=== PATIENT | male | born 1950 | race Caucasian/White ===

== ENCOUNTER 2019-01-13 17:54 | Inpatient (IN) ==
[2019-01-13] MEDS ORDERED: Isovue-370 500 ML BOTTLE IVP ONE (18:12)
--- NOTE | 2019-01-13 18:13 | Emergency Department Note ---
Disposition Clinical Impression: Non-STEMI (non-ST elevated myocardial infarction) Chest pain Qualifiers: Chest pain type: unspecified Qualified Code(s): R07.9 - Chest pain, unspecified Disposition: Admitted As Inpatient Condition: Fair Time of Disposition: 21:15 Chest Pain HPI - General Chief Complaint: ED Chest Pain Stated Complaint: chest pain Time Seen by Provider: 01/13/19 17:58 Source: patient Mode of arrival: ambulatory Limitations: no limitations Vital Signs Reviewed: Yes Nursing Notes Reviewed: Yes - History of Present Illness HPI Narrative: 68-year-old male past medical history of hypertension, significant smoking history, previous myocardial infarctions presenting for one week of intermittent chest pain associated with shortness of breath, lightheaded dizziness, fever and chills, and back pain. Patient states the pain has been on and off for the past week that has spontaneously resolved without any issue. Patient states that today at noon his pain has started again and not gone away. Patient states his pain is 10 out of 10 on the pain scale, associated with difficulty breathing, his pain radiates into his left neck and throat and jaw and left upper extremity and radiates to his back. Patient is also had nausea and vomiting since this time. Pt complaint: chest pain Onset (ago): week(s) Duration: intermittent, gradually worsening Pain Location: substernal Severity: severe Severity scale (1-10): 10 Quality: sharp Pain Radiation: LUE, neck, jaw/teeth Improves with: nothing Worsens with: nothing Associated symptoms: Reports: nausea, vomiting, diaphoresis Treatments prior to arrival chest pain: aspirin (Patient had 3X 325 aspirin given this afternoon prior to coming to the ED.) - Related Data Home Medications Medication Instructions Recorded Confirmed Metoprolol [Lopressor] 12.5 mg PO BID 01/13/19 01/13/19 traZODone [TraZODone] 50 mg PO HS 01/13/19 01/13/19 Allergies Allergy/AdvReac Type Severity Reaction Status Date / Time Penicillins [PCN] Allergy Severe Anaphylaxis Verified 01/02/17 20:33 Review of Systems: *See History of Present Illness for more detail Constitutional: Admits fever, chills Cardiovascular: Admits chest pain Respiratory: Admits dyspnea, denies: cough, hemoptysis Gastrointestinal: Admits nausea and vomiting Denies: abdominal pain, diarrhea, constipation, hematemesis, melena, hematochezia Genitourinary: Denies: hematuria Musculoskeletal: Denies: back pain, neck pain Neurological: Admits to weakness, lightheadedness and dizziness Denies: headache, numbness, paresthesias, difficulty with ambulation. Endocrine: Admit fatigue All systems ED: reviewed and negative except as stated. Review of Systems: As Per HPI Chest Pain PMH - Past Medical History Medical history: Reports: coronary artery disease, CVA, hyperlipidemia, other Surgical history: Reports: bariatric surgery (gastric band), knee replacement (left), other (parotid gland removal, tongue growth removal ), pacemaker Psychiatric history: Reports: depression - Social History Smoking Status: Former smoker Alcohol use: Reports: occasionally Drug use: Reports: none Physical Exam Constitutional: Patient appears in moderate distress due to pain, he is mildly diaphoretic, [id number], engaged to conversation, speech is fluid, answers questions appropriately Neuro: GCS 15, no overt focal neurological deficits Head: Atraumatic, normocephalic Eyes: Pupils equal, round and reactive to light, no scleral icterus, no conjunctival injection Neck: Trachea midline without deviation. Anterior neck is supple without swelling. *Chest: Symmetric chest wall rise *Heart: Cardiac rhythm and rate are regular with S1 and S2 , no S3 or S4 appreciated, no murmurs, gallops, rubs, or clicks. *Lungs: Lungs are clear to auscultation bilaterally, without accessory muscle use or prolonged expiratory phase. No wheezes, rhonchi or stridor appreciated. Abdomen: Abdomen is flat, soft to palpation, normal bowel sounds. No abdominal bruit auscultated. Non-distended, non-rigid, no organomegaly, no ascites appreciated. No pulsatile mass, no tenderness or guarding to palpation in all four quadrants, no rebound Extremities: Normal capillary refill without evidence of pedal edema, joint swelling or erythema. Pulses/motor/sensory intact in all 4 extremities. Psychiatric exam: Patient displays a normal affect and mood for the environment. No overt signs of hallucination. Integumentary: warm, dry, intact, normal color. No rash, cyanosis, erythema, or pallor - General Limitations: no limitations General appearance: alert, in no apparent distress Course Course Narrative: Concern for dissection given patient's lightheadedness, dizziness, chest pain with radiation to the back we will order a CT dissection study at this time, Basic labs including troponin EKG/old EKG Treatments: Nitroglycerin for the management of pain, we will reassess with escalation to greater degree of pain medications as needed. - Reevaluation(s) Reevaluation #1: Patient pain not relieved with 3X's nitroglycerin We will give 0.5 mg Dilaudid at this time. Vital Signs Temperature 97.8 F 01/13/19 18:01 Pulse Rate 74 01/13/19 18:01 Respiratory Rate 18 01/13/19 18:01 Blood Pressure 115/72 01/13/19 18:01 O2 Sat by Pulse Oximetry 96 01/13/19 18:01 Temperature 97.8 F 01/13/19 18:01 Pulse Rate 74 01/13/19 19:57 Respiratory Rate 20 01/13/19 19:57 Blood Pressure 115/75 01/13/19 19:57 O2 Sat by Pulse Oximetry 94 01/13/19 19:57 Oxygen Delivery Oxygen Delivery Room Air Chest Pain - MDM Narrative Medical decision making narrative: The patient's heart score is 9 Patient states symptoms have improved with continued management for here in ED. Patient laboratory is significant for an elevated troponin at 0.10 Otherwise laboratory, EKG and imaging results are negative for acute pathology Patient started on heparin drip when negative dissection study was obtained Repeat troponin ordered Patient will be admitted to hospitalist medicine service for ACS workup Patient lives at bedside verbalized understanding and agreement with this plan. Dr. White accepting admission. - Lab Data Lab results reviewed: Yes I reviewed the patient's lab results. Result diagrams: 01/13/19 18:20 01/13/19 18:20 Lab Results 01/13/19 01/13/19 01/13/19 Range/Units 18:20 18:20 18:20 WBC 7.4 (4.3-11.1) K/mcL RBC 4.52 (4.19-5.50) M/mcL Hgb 14.1 (12.9-16.9) g/dL Hct 41.8 (37.5-50.1) % MCV 92.5 (83.0-100.0) fL MCH 31.2 (28.0-33.3) pg MCHC 33.7 (31.6-35.5) g/dL RDW 12.3 (11.5-14.5) % Plt Count 215 (140-400) K/mcL MPV 10.4 (9.4-12.4) fL Immature Gran % 0.4 (0-4) % Seg Neutrophils % 58.3 % Lymphocytes % 27.6 % Monocytes % 10.2 % Eosinophils % 3.0 % Basophils % 0.5 % Neutrophils # 4.3 (1.6-8.9) K/mcL Lymphocytes # 2.1 (0.6-4.6) K/mcL Monocytes # 0.8 (0.0-1.3) K/mcL Eosinophils # 0.2 (0.0-0.6) K/mcL Basophils # 0.0 (0.0-0.2) K/mcL PT 10.6 (9.4-12.1) Seconds INR 0.9 APTT 31.5 (26.0-36.0) Seconds Sodium 142 (136-145) mEq/L Potassium 4.2 (3.5-5.1) mEq/L Chloride 108 H (98-107) mEq/L Carbon Dioxide 23 (23-29) mEq/L BUN 28 H (8-23) mg/dL Creatinine 0.83 (0.70-1.30) mg/dL Est GFR ( Amer) > 60 (> 60) Est GFR (Non-Af Amer) > 60 (> 60) BUN/Creatinine Ratio 34 H (6-26) Glucose 100 (70-105) mg/dL Calculated Osmolality 300 (280-300) Calcium 9.1 (8.6-10.3) mg/dL Troponin I 0.10 H* (< 0.04) ng/mL - Radiology Data Radiology results reviewed: Yes I reviewed the patient's radiology results. CT Dissection 01/13/19 18:12 IMPRESSION: 1. No acute aortic pathology. Mild diffuse atherosclerotic plaque with no dissection or aneurysm. 2. Enlarged main pulmonary arteries indicative of pulmonary hypertension. 3. No acute pulmonary findings. 4. Atherosclerotic calcification in the coronary circulation. Stable pericardial calcification with no effusion. 5. No acute findings within the abdomen or pelvis. Mild diffuse colonic stool burden. D/ / 01/13/2019 20:37:54 Mike Call MD / [facility] Interpreting Provider: Mike Call MD - EKG Data EKG attestation: Yes I reviewed and interpreted this EKG. EKG results narrative: Patient EKG shows sinus rhythm with a heart rate of 73 bpm TN interval of 166 ms, QS duration 15 Mill 6, QT/QTc interval 404/446 ms respectively. There are n o significant ST segment elevations, depressions, pathologic Q waves, there are abnormal T-wave inversions noted diffusely particularly in lead aVR, aVL, and V1 which appear isolated to these leads and consistent with prior EKG in leads aVR and aVL, there are no signs of acute ischemic change. There is a mild nonspecific intraventricular conduction delay noted with widened QRS durations particularly in the inferior leads, however this EKG performed today appears to be generally consistent with prior EKG performed on 08/09/2016. 19:21: Patient with continued chest pain, repeat EKG was obtained which shows sinus rhythm with a heart of 66 bpm, TN interval of 179 ms, QRS duration of 112 ms, QT/QTc interval 414/434 ms respectively, there are no new acute ischemic changes, this EKG is generally consistent with prior. Heart Score - Score History: Highly Suspicious EKG: Non Specific repolarisation Disturbance Age: Greater than 65 Risk Factors: Equal/Greater than 3 risk factor or history of atherosclerotic disease Troponin: Greater than 3x normal limit HEART Score Total: 9
[2019-01-13 18:44] LABS: Basophils % 0.5 %; Eosinophils # 0.2 K/mcL (0.0-0.6); Hematocrit 41.8 % (37.5-50.1); Hemoglobin 14.1 g/dL (12.9-16.9); Immature Granulocytes % 0.4 % (0-4); Lymphocytes # 2.1 K/mcL (0.6-4.6); Lymphocytes % 27.6 %; Mean Corpuscular HGB Conc 33.7 g/dL (31.6-35.5); Mean Corpuscular Hemoglobin 31.2 pg (28.0-33.3); Mean Corpuscular Volume 92.5 fL (83.0-100.0); Mean Platelet Volume 10.4 fL (9.4-12.4); Monocytes # 0.8 K/mcL (0.0-1.3); Monocytes % 10.2 %; Neutrophils # 4.3 K/mcL (1.6-8.9); Platelet Count 215 K/mcL (140-400); Red Blood Count 4.52 M/mcL (4.19-5.50); Red Cell Distribution Width 12.3 % (11.5-14.5); Segmented Neutrophils % 58.3 %; White Blood Count 7.4 K/mcL (4.3-11.1)
[2019-01-13 18:55] LABS: INR 0.9; Prothrombin Time 10.6 Seconds (9.4-12.1)
[2019-01-13 18:58] LABS: Activated Partial Thrombo Time 31.5 Seconds (26.0-36.0)
[2019-01-13 19:05] LABS: BUN/Creatinine Ratio 34 (6-26); Blood Urea Nitrogen 28 mg/dL (8-23); Calcium 9.1 mg/dL (8.6-10.3); Carbon Dioxide 23 mEq/L (23-29); Chloride 108 mEq/L (98-107); Glucose 100 mg/dL (70-105); Osmolality,Calculated 300 (280-300); Potassium 4.2 mEq/L (3.5-5.1); Sodium 142 mEq/L (136-145); eGFR For African Americans > 60 (> 60); eGFR For Non-African Americans > 60 (> 60)
[2019-01-13] MEDS: Nitroglycerin 0.4 MG TAB.SUBL SL PRN ×3 (19:41→19:52)
[2019-01-13] MEDS ORDERED: *HR* HYDROmorphone (PF) 1 MG/ML SYRINGE IVP ONE (20:18)
[2019-01-13] MEDS ORDERED: *HR* Heparin 5,000 UNIT/ML VIAL IVP ONE (20:36)
[2019-01-13] MEDS ORDERED: *HR* Heparin 5,000 UNIT/ML VIAL IVP PRN ×2 (20:36)
[2019-01-13] MEDS ORDERED: Heparin 25,000 UNIT/250 ML D5W 25,000 UNIT/250 ML IV.SOLN IVC SCH (20:45)
--- NOTE | 2019-01-13 21:19 | Emergency Department Note ---
Disposition Clinical Impression: NSTEMI (non-ST elevated myocardial infarction) Disposition: Admitted As Inpatient Condition: Good Time of Disposition: 21:19 General Adult HPI - General Chief complaint: ED Chest Pain Stated complaint: chest pain Time Seen by Provider: 01/13/19 17:58 Source: patient Mode of arrival: ambulatory Limitations: no limitations - History of Present Illness Pain Scale: 7 - Related Data Home Medications Medication Instructions Recorded Confirmed Metoprolol [Lopressor] 12.5 mg PO BID 01/13/19 01/13/19 traZODone [TraZODone] 50 mg PO HS 01/13/19 01/13/19 Allergies Allergy/AdvReac Type Severity Reaction Status Date / Time Penicillins [PCN] Allergy Severe Anaphylaxis Verified 01/02/17 20:33 Past Medical History - Past Medical History Medical history: Reports: coronary artery disease, CVA, hyperlipidemia, other Surgical history: Reports: bariatric surgery (gastric band), knee replacement (left), other (parotid gland removal, tongue growth removal ), pacemaker Psychiatric history: Reports: depression - Social History Smoking Status: Former smoker Smokeless Tobacco Status: No Alcohol use: Reports: occasionally Drug use: Reports: none Physical Exam - General Limitations: no limitations General appearance: alert, in no apparent distress Course Vital Signs Temperature 97.8 F 01/13/19 18:01 Pulse Rate 74 01/13/19 18:01 Respiratory Rate 18 01/13/19 18:01 Blood Pressure 115/72 01/13/19 18:01 O2 Sat by Pulse Oximetry 96 01/13/19 18:01 Temperature 97.8 F 01/13/19 18:01 Pulse Rate 74 01/13/19 19:57 Respiratory Rate 20 01/13/19 19:57 Blood Pressure 115/75 01/13/19 19:57 O2 Sat by Pulse Oximetry 94 01/13/19 19:57 Oxygen Delivery Oxygen Delivery Room Air Medical Decision Making - Lab Data Result diagrams: 01/13/19 18:20 01/13/19 18:20 Lab Results 01/13/19 01/13/19 01/13/19 Range/Units 18:20 18:20 18:20 WBC 7.4 (4.3-11.1) K/mcL RBC 4.52 (4.19-5.50) M/mcL Hgb 14.1 (12.9-16.9) g/dL Hct 41.8 (37.5-50.1) % MCV 92.5 (83.0-100.0) fL MCH 31.2 (28.0-33.3) pg MCHC 33.7 (31.6-35.5) g/dL RDW 12.3 (11.5-14.5) % Plt Count 215 (140-400) K/mcL MPV 10.4 (9.4-12.4) fL Immature Gran % 0.4 (0-4) % Seg Neutrophils % 58.3 % Lymphocytes % 27.6 % Monocytes % 10.2 % Eosinophils % 3.0 % Basophils % 0.5 % Neutrophils # 4.3 (1.6-8.9) K/mcL Lymphocytes # 2.1 (0.6-4.6) K/mcL Monocytes # 0.8 (0.0-1.3) K/mcL Eosinophils # 0.2 (0.0-0.6) K/mcL Basophils # 0.0 (0.0-0.2) K/mcL PT 10.6 (9.4-12.1) Seconds INR 0.9 APTT 31.5 (26.0-36.0) Seconds Sodium 142 (136-145) mEq/L Potassium 4.2 (3.5-5.1) mEq/L Chloride 108 H (98-107) mEq/L Carbon Dioxide 23 (23-29) mEq/L BUN 28 H (8-23) mg/dL Creatinine 0.83 (0.70-1.30) mg/dL Est GFR ( Amer) > 60 (> 60) Est GFR (Non-Af Amer) > 60 (> 60) BUN/Creatinine Ratio 34 H (6-26) Glucose 100 (70-105) mg/dL Calculated Osmolality 300 (280-300) Calcium 9.1 (8.6-10.3) mg/dL Troponin I 0.10 H* (< 0.04) ng/mL Attestation Statement - Attestation Attestation: I examined this patient and my medical decision-making was reviewed with the Resident Physician. I agree with the documented findings, disposition and treatment plan as described except to the extent set forth below. 68 year old male presents to the Ed with complaints of chest pain adn appears to have an elevated troponin and otherwise negative CTA chest. likely an NSTEMI and we have started on heparin and admitted to [facility]
[2019-01-13 21:33] LABS: Hematocrit 38.4 % (37.5-50.1); Hemoglobin 12.9 g/dL (12.9-16.9); Mean Corpuscular HGB Conc 33.6 g/dL (31.6-35.5); Mean Corpuscular Hemoglobin 31.9 pg (28.0-33.3); Mean Corpuscular Volume 94.8 fL (83.0-100.0); Mean Platelet Volume 10.4 fL (9.4-12.4); Platelet Count 199 K/mcL (140-400); Red Blood Count 4.05 M/mcL (4.19-5.50); Red Cell Distribution Width 12.3 % (11.5-14.5); White Blood Count 6.3 K/mcL (4.3-11.1)
[2019-01-13 21:41] LABS: INR 0.9; Prothrombin Time 10.3 Seconds (9.4-12.1)
[2019-01-14] MEDS ORDERED: Naloxone 0.4 MG/ML INJ IVP PRN (00:11)
[2019-01-14] MEDS ORDERED: Ondansetron 4 MG/2 ML VIAL IVP PRN (00:11)
[2019-01-14] MEDS ORDERED: *HR* Dextrose 50 % in Water (Syg) 50 ML SYRINGE IVP PRN (00:17)
[2019-01-14] MEDS ORDERED: D5% in Water 1,000 ML IVC PRN (00:17)
[2019-01-14] MEDS ORDERED: Dextrose Gel 15 GM/37.5 ML TUBE PO PRN ×2 (00:17)
--- NOTE | 2019-01-14 00:18 | Internal Med History&Physical ---
Date of Encounter: 01/13/19 Time of Encounter: 23:15 Internal Medicine - H&P: HPI Chief complaint: Chest pain Admitted From: Emergency Dept Plans for Post Hospital Care: Home History of present illness: Mr. Sarkar is a 68 year old male Patient presented to the emergency room with 1 week history of intermittent chest pain and shortness of breath. At approximately noon patient's pain came back and did not improve. Patient tried taking aspirin at home and eventually the pain reached an 8 out of 10. He informed his who convinced him to come to the emergency department for further evaluation. He had radiation of pain into his left arm as well as his neck. The pain started in the center of his chest with radiation to his back. The pain had typically been resolving without intervention. The emergency room patient's initial vital signs were within normal limits CBC within normal limits BMP within normal limits. Initial troponin 0.10, increasing to 0.16. CT dissection study: No acute aortic pathology., No acute pulmonary findings or acute findings within the abdomen and pelvis. EKGx2: Sinus rhythm, no ischemic changes Patient was given nitroglycerin as well as 0.5 mg of Dilaudid. He had complete resolution of his chest pain. He was started on a heparin drip and admitted to the hospital for further management. On my evaluation, patient is resting comfortably in hospital bed in no acute distress. His is at bedside. She indicates that he has been having this pain on and off and she is tried to get him to come to the hospital but he has refused. He currently denies chest pain, abdominal pain, nausea, vomiting, diarrhea and constipation. He has a long history in his family of heart disease and diabetes, his mother and father both had heart disease, and 3 of his brothers also had heart disease. One of his brothers also has diabetes, and his mother had diabetes as well. He is a full code. 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, lap band - Social History Smoking Status: Former smoker Smokeless Tobacco Status: No Alcohol use: occasionally Drug use: none - Family History Mother Living Status: Hx Family Cardiac Disorders: Yes Hx Family Respiratory Disorders: No Hx Family Cancer: No Hx Family GI Disorders: No Hx Family Endocrine Disorder: No Hx Family Neuromuscular Disorders: No Hx Family Neurologic Disorders: No Hx Family HEENT Disorders: No Hx Family Autoimmune Disorders: No Internal Medicine - H&P: Meds Metoprolol [Lopressor] 12.5 mg PO BID 01/13/19 [History] traZODone [TraZODone] 50 mg PO HS 01/13/19 [History] Allergy/AdvReac Type Severity Reaction Status Date / Time Penicillins [PCN] Allergy Severe Anaphylaxis Verified 01/02/17 20:33 All Systems PM: A 10-system review of systems was performed and is negative for pertinent findings except as documented above in the HPI. - Constitutional Vitals: Temp Pulse Resp BP Pulse Ox 97.9 F 65 20 137/90 94 01/13/19 21:56 01/13/19 21:56 01/13/19 21:56 01/13/19 21:56 01/13/19 21:56 General appearance: Present: cooperative, A&O X 3, pleasant, no acute distress, answers questions appropriately Exam: - - Head Head exam: Present: normal inspection - Eye Eye exam: Present: EOMI, normal appearance - Respiratory Respiratory exam: Present: CTAB. Absent: rales, respiratory distress, rhonchi, wheezes - Cardiovascular Cardiovascular exam: Present: RRR. Absent: diastolic murmur, systolic murmur - GI/Abdominal GI/Abdominal exam: Present: normal bowel sounds, soft. Absent: tenderness - Extremities Exam Extremities exam: Present: warm, radial pulses palpable and symmetrical. Absent: calf tenderness, pedal edema, tenderness - Neurological Exam Neurological exam: Present: no focal deficits, strengths equal and symetr throughout. Absent: motor sensory deficit, facial droop, speech deficit - Skin Skin exam: Present: dry, normal color, warm Internal Med - H&P Results - Labs CBC & Chem 7: 01/13/19 20:47 01/13/19 18:20 Labs: Short CBC 01/13/19 01/13/19 Range/Units 18:20 20:47 WBC 7.4 6.3 (4.3-11.1) K/mcL Hgb 14.1 12.9 (12.9-16.9) g/dL Hct 41.8 38.4 (37.5-50.1) % Plt Count 215 199 (140-400) K/mcL Neutrophils # 4.3 (1.6-8.9) K/mcL BMP 01/13/19 18:20 Sodium 142 Potassium 4.2 Chloride 108 H Carbon Dioxide 23 BUN 28 H Creatinine 0.83 Glucose 100 Calcium 9.1 Cardiac Enzymes 01/13/19 01/13/19 Range/Units 18:20 20:47 Troponin I 0.10 H* 0.16 H* (< 0.04) ng/mL - Impressions ITS Impressions CT Dissection 01/13/19 18:12 IMPRESSION: 1. No acute aortic pathology. Mild diffuse atherosclerotic plaque with no dissection or aneurysm. 2. Enlarged main pulmonary arteries indicative of pulmonary hypertension. 3. No acute pulmonary findings. 4. Atherosclerotic calcification in the coronary circulation. Stable pericardial calcification with no effusion. 5. No acute findings within the abdomen or pelvis. Mild diffuse colonic stool burden. D/ / 01/13/2019 20:37:54 Mike Call MD / [facility] Interpreting Provider: Mike Call MD - Assessment and Plan (1) Chest pain Current Visit: Yes Status: Acute Assessment and plan: Now resolved after nitroglycerin 3 and 0.5 mg of Dilaudid. Initial troponin elevated to 0.16. EKG nonischemic. Patient was started on heparin drip in the emergency room. 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 Normal left ventricular diastolic function. Dilated right ventricle with normal systolic function. A device lead was visualized in the right atrium and right ventricle. Moderate pulmonic regurgitation. Unable to estimate RVSP due to lack of TR jet. Repeat echocardiogram Cardiology consultation Qualifiers: Chest pain type: unspecified Qualified Code(s): R07.9 - Chest pain, unspecified (2) Diabetes Current Visit: Yes Status: Acute Assessment and plan: Patient is not an insulin dependent diabetic Monitor sugars every 6 hours Nothing by mouth Low dose insulin sliding scale as needed Hold home meds. Qualifiers: Diabetes mellitus type: type 2 Diabetes mellitus jail insulin use: without jail use Diabetes mellitus complication status: without complication Qualified Code(s): E11.9 - Type 2 diabetes mellitus without complications (3) Pacemaker Current Visit: No Status: Chronic Assessment and plan: Patient has a pacemaker. Continue to monitor (4) DVT prophylaxis Current Visit: No Status: Acute Assessment and plan: Continue heparin drip - Time Spent With Patient Total time spent is greater than 50% in coordination of care (as documented) at patient's floor/unit and/or counseling patient: Greater than 35 minutes
[2019-01-14 04:13] LABS: Hematocrit 38.7 % (37.5-50.1); Hemoglobin 12.8 g/dL (12.9-16.9); Mean Corpuscular HGB Conc 33.1 g/dL (31.6-35.5); Mean Corpuscular Volume 93.7 fL (83.0-100.0); Mean Platelet Volume 10.7 fL (9.4-12.4); Platelet Count 176 K/mcL (140-400); Red Blood Count 4.13 M/mcL (4.19-5.50); Red Cell Distribution Width 12.4 % (11.5-14.5); White Blood Count 6.6 K/mcL (4.3-11.1)
[2019-01-14 04:33] LABS: BUN/Creatinine Ratio 34 (6-26); Blood Urea Nitrogen 23 mg/dL (8-23); Calcium 8.8 mg/dL (8.6-10.3); Carbon Dioxide 26 mEq/L (23-29); Chloride 108 mEq/L (98-107); Glucose 129 mg/dL (70-105); Osmolality,Calculated 297 (280-300); Potassium 3.8 mEq/L (3.5-5.1); Sodium 141 mEq/L (136-145); eGFR For African Americans > 60 (> 60); eGFR For Non-African Americans > 60 (> 60)
[2019-01-14] MEDS: Insulin LISPRO 300 UNITS/3 ML VIAL SQ SCH ×3 (05:13→18:25)
[2019-01-14] MEDS ORDERED: Ketorolac 15 MG/ML VIAL IVP PRN (06:33)
--- NOTE | 2019-01-14 09:40 | Cardiology Consult Note ---
<Masoud Alvarez - Last Filed: 01/14/19 10:22> Date of Encounter: 01/14/19 Time of Encounter: 09:38 Assessment and Plan (1) Non-STEMI (non-ST elevated myocardial infarction) Current Visit: Yes Status: Acute Troponin elevation 0.10, 0.16, 0.41. EKG NSR with no acute ST changes. C/o typical chest pain symptoms. H/o mild CAD on [facility] in 2011. 40% stenosis in mLAD and 1st dx artery. TTE pending. [facility] recommended. R/B/A reviewed with patient and . He agrees to proceed. Possible LHC later today if availability in cardiac catheterization lab. Patient is currently chest pain free. Continue heparin gtt. Asa, statin, and bb. (2) Hyperlipemia Current Visit: No Status: Chronic Start statin therapy. Qualifiers: Hyperlipidemia type: mixed hyperlipidemia Qualified Code(s): E78.2 - Mixed hyperlipidemia (3) Pacemaker Current Visit: No Status: Chronic H/o PPM for SSS in 2006. Battery change in 2015. Followed with Dr. Sebastian at [place]. Need f/u here at [place] with Dr. Sebastian. (4) CAD (coronary artery disease) Current Visit: No Status: Chronic Mild non-obstructive CAD on [facility] in 2011. Asa, statin, and bb recommended. Qualifiers: Coronary Disease-Associated Artery/Lesion type: [place] artery [place] vs. transplanted heart: [place] heart Associated angina: angina presence unspecified Qualified Code(s): I25.10 - Atherosclerotic heart disease of [place] coronary artery without angina pectoris Discussion w patient/family: The assessment and plan as outlined above was discussed with the patient and/or family members who expressed understanding and agreement. All questions were answered. Thank you for involving us in the care of your patient. Please call with any questions. History of Present Illness Consult date: 01/14/19 Requesting physician: Barry Bach Consult reason: Chest pain, NSTEMI Chief complaint: Intermittent chest pain for 5 days History of present illness: Mr. Sarkar is a 68 year old male with past medical history of mild CAD on [facility] in 2011, PPM for SSS, HLD, and DM type II. He presents from home with c/o intermittent chest pain for the last week. He describes midsternal aching and burning going into his left side and back. Pain intermittent all day Monday associated with diaphoresis. Denies SOB, palpitations, or dizziness. He denies orthopnea, PND, or edema. Denies aggravating factors. Pain was relieved some on Monday with aspirin. He was given SL NTG and pain medication in the ED with complete resolution of his pain. Work-up revealed elevated troponin up to 0.41. EKG showed SR with no acute ST changes. no change from prior EKG. He is currently pain free. Prior cardiac testin06/2012 [facility]- ejection fraction was 65%. 40% discrete stenosis pLAD 40% discrete stenosis p 1st DX. 20% discrete stenosis p LCx artery. 20% stenosis mRCA. TTE 08/11/16- EF 60-65%. No significant valvular disease. 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, lap band - Social History Smoking Status: Former smoker Smokeless Tobacco Status: No Alcohol use: occasionally Drug use: none - Family History Mother Living Status: Hx Family Cardiac Disorders: Yes Hx Family Respiratory Disorders: No Hx Family Cancer: No Hx Family GI Disorders: No Hx Family Endocrine Disorder: No Hx Family Neuromuscular Disorders: No Hx Family Neurologic Disorders: No Hx Family HEENT Disorders: No Hx Family Autoimmune Disorders: No Medications and Allergies Metoprolol [Lopressor] 12.5 mg PO BID 01/13/19 [History] traZODone [TraZODone] 50 mg PO HS 01/13/19 [History] Allergy/AdvReac Type Severity Reaction Status Date / Time Penicillins [PCN] Allergy Severe Anaphylaxis Verified 01/02/17 20:33 All Systems Review: The remainder of the systems were reviewed and are negative Physical Examination Vital Signs, Last 4 Hours Temp Pulse Resp BP Pulse Ox 01/14/19 07:42 97.7 F 62 18 113/75 94 General: Conversant, No Apparent Distress HEENT: Atraumatic, Normocephaly, Mucus Membranes Moist Neck: No JVD, Normal carotid pulses Cardiac: Reg Rate and Rhythm, Normal S1 and S2, No Murmur Lungs: Normal Breath Sounds, No Wheeze, Rales, Rhonchi Neuro: Alert and responsive, No focal deficits noted Abdomen: Soft, Non-Tender Skin: No rashes noted on visualized skin Musculoskeletal: No Chest Wall Tenderness Extremities: No Clubbing, No Cyanosis, No Edema, Normal Pulses Results 01/14/19 03:33 01/14/19 03:33 Lab Results 01/13/19 01/13/19 01/13/19 18:20 18:20 18:20 WBC 7.4 Hgb 14.1 Hct 41.8 Plt Count 215 INR 0.9 APTT 31.5 Sodium 142 Potassium 4.2 Chloride 108 H Carbon Dioxide 23 BUN 28 H Creatinine 0.83 Glucose 100 Calcium 9.1 Troponin I 0.10 H* 01/13/19 01/13/19 01/13/19 20:47 20:47 20:47 WBC 6.3 Hgb 12.9 Hct 38.4 Plt Count 199 INR 0.9 APTT Sodium Potassium Chloride Carbon Dioxide BUN Creatinine Glucose Calcium Troponin I 0.16 H* 01/14/19 01/14/19 01/14/19 03:33 03:33 03:33 WBC 6.6 Hgb 12.8 L Hct 38.7 Plt Count 176 INR APTT Sodium 141 Potassium 3.8 Chloride 108 H Carbon Dioxide 26 BUN 23 Creatinine 0.67 L Glucose 129 H Calcium 8.8 Troponin I 0.41 H* - Imaging and Cardiology Echo: report reviewed Cardiac cath: report reviewed - EKG Interpretation EKG results cardiology: personally reviewed Consult Discharge Plan - Plan Referrals: Jodee Guo CNP [Primary Care Provider] - <Migdalia Boo - Last Filed: 01/14/19 12:23> Date of Encounter: 01/14/19 - Attending Attestation I examined this patient and my medical decision-making was reviewed with the BISQUE CLEANER. I agree with the documented findings, disposition and treatment plan as described. Mr. Sarkar presents with chest pain and elevated troponin. Known history of mild CAD in 2011 by [facility]. Patient AAOx3 at time of evaluation. No appreciable cardiac murmurs. Renal function normal. Troponin now 0.41. Hgb acceptable. TTE pending. Impression/Plan: 1. NSTEMI: Discussed pursuing [facility]. The R/B/A of the procedure were discussed with the patient and . The patient expressed understanding and has decided to proceed. Continue heparin, asa, statin, BB. 2. Lipids: Recheck lipid panel. Last one seen in our system is 2015. 3. PPM: H/o PPM for SSS in 2006 with battery change in 2015. Follows with Dr. Sebastian. Assessment and Plan Discussion w patient/family: The assessment and plan as outlined above was discussed with the patient and/or family members who expressed understanding and agreement. All questions were answered. Thank you for involving us in the care of your patient. Please call with any questions. History of Present Illness History of present illness: Mr. Sarkar is a 68 year old male All Systems Review: The remainder of the systems were reviewed and are negative Results 01/14/19 03:33 01/14/19 03:33 Lab Results 01/13/19 01/13/19 01/13/19 18:20 18:20 18:20 WBC 7.4 Hgb 14.1 Hct 41.8 Plt Count 215 INR 0.9 APTT 31.5 Sodium 142 Potassium 4.2 Chloride 108 H Carbon Dioxide 23 BUN 28 H Creatinine 0.83 Glucose 100 Calcium 9.1 Troponin I 0.10 H* 01/13/19 01/13/19 01/13/19 20:47 20:47 20:47 WBC 6.3 Hgb 12.9 Hct 38.4 Plt Count 199 INR 0.9 APTT Sodium Potassium Chloride Carbon Dioxide BUN Creatinine Glucose Calcium Troponin I 0.16 H* 01/14/19 01/14/19 01/14/19 03:33 03:33 03:33 WBC 6.6 Hgb 12.8 L Hct 38.7 Plt Count 176 INR APTT Sodium 141 Potassium 3.8 Chloride 108 H Carbon Dioxide 26 BUN 23 Creatinine 0.67 L Glucose 129 H Calcium 8.8 Troponin I 0.41 H* 01/14/19 10:53 WBC Hgb Hct Plt Count INR APTT Sodium Potassium Chloride Carbon Dioxide BUN Creatinine Glucose Calcium Troponin I 0.42 H*
[2019-01-14] MEDS: Aspirin Enteric Coated 81 MG Tablet PO SCH (11:31)
--- NOTE | 2019-01-14 15:14 | Internal Med Progress Note ---
Hospitalist Progress Note - Encounter Date of Encounter: 01/14/19 Time of Encounter: 15:12 - Subjective Interval History: Evaluated patient earlier today. He denies any chest pain at this time. No shortness of breath. No fevers or chills reported overnight. No nausea or vomiting. No hematemesis or melena. - Exam Vitals: Temp Pulse Resp BP Pulse Ox 97.7 F 50 19 113/63 97 01/14/19 12:00 01/14/19 12:00 01/14/19 12:00 01/14/19 12:01/14/19 12:00 Exam: General: Patient is alert, no acute distress, oriented x 3 ENT: Mucous membranes moist Respiratory: Good respiratory effort. Normal breath sounds. No wheezing or crackles. Cardiovascular: Regular rate and rhythm. s1 and s2 normal No clicks, rubs, gallops, or murmurs. No pedal edema Abdomen: Abdomen is soft, nontender. Bowel sounds are present Musculoskeletal: Spontaneously moving all extremities Skin: warm, dry, intact. Neuro: Alert oriented x 3 normal cranial nerves, no focal deficits - Assessment and Plan (1) Non-STEMI (non-ST elevated myocardial infarction) Current Visit: Yes Status: Acute (2) Chest pain Current Visit: Yes Status: Acute (3) Pacemaker Current Visit: No Status: Chronic (4) DVT prophylaxis Current Visit: No Status: Acute (5) Diabetes Current Visit: Yes Status: Acute DVT Prophylaxis: On IV heparin - Summary of Assessment and Plan Summary of Assessment and Plan: Acute non-ST elevation OH: Patient has had a troponin rise up to 0.41 this morni ng. EKG does not show any ST segment changes. Patient has been placed on IV heparin drip. Cardiology consulted. Recommend left heart catheterization. High risk for complications. On aspirin, statin and beta aly. Status post-permanent pacemaker Diabetes mellitus type 2: Blood sugars are well controlled. Continue sliding scale insulin. - Time Spent with Patient Total time spent is greater than 50% in coordination of care (as documented) at patient's floor/unit and/or counseling patient: Internal Medicine: Result - Labs CBC & Chem 7: 01/14/19 03:33 01/14/19 03:33 Labs: Short CBC 01/13/19 01/13/19 01/14/19 Range/Units 18:20 20:47 03:33 WBC 7.4 6.3 6.6 (4.3-11.1) K/mcL Hgb 14.1 12.9 12.8 L (12.9-16.9) g/dL Hct 41.8 38.4 38.7 (37.5-50.1) % Plt Count 215 199 176 (140-400) K/mcL Neutrophils # 4.3 (1.6-8.9) K/mcL BMP 01/13/19 01/14/19 18:20 03:33 Sodium 142 141 Potassium 4.2 3.8 Chloride 108 H 108 H Carbon Dioxide 23 26 BUN 28 H 23 Creatinine 0.83 0.67 L Glucose 100 129 H Calcium 9.1 8.8 Cardiac Enzymes 01/13/19 01/13/19 01/14/19 Range/Units 18:20 20:47 03:33 Troponin I 0.10 H* 0.16 H* 0.41 H* (< 0.04) ng/mL 01/14/19 Range/Units 10:53 Troponin I 0.42 H* (< 0.04) ng/mL - ABG Interpretation ABG results: PT/INR, D-dimer PT 10.3 Seconds (9.4-12.1) 01/13/19 20:47 - Impressions Impressions CT Dissection 01/13/19 18:12 IMPRESSION: 1. No acute aortic pathology. Mild diffuse atherosclerotic plaque with no dissection or aneurysm. 2. Enlarged main pulmonary arteries indicative of pulmonary hypertension. 3. No acute pulmonary findings. 4. Atherosclerotic calcification in the coronary circulation. Stable pericardial calcification with no effusion. 5. No acute findings within the abdomen or pelvis. Mild diffuse colonic stool burden. D/ / 01/13/2019 20:37:54 Mike Call MD / [facility] Interpreting Provider: Mike Call MD Echocardiogram 01/14/19 00:14 Impressions: LVEF 60-65%. Normal LV chamber size and function. Mild concentric left ventricular hypertrophy. Moderate left ventricular diastolic dysfunction. Atypical septal motion consistent with paced rhythm. Normal right ventricular structure and function. Mild aortic regurgitation. Mild pulmonic regurgitation. No evidence of pulmonary hypertension. A device lead was visualized in the right atrium and right ventricle. Left Ventricular Wall Motion: Rest Echo Findings All wall segments showed normal motion. Findings: Study Quality * Technically adequate exam. ECG Findings * Paced rhythm. Left Ventricle * LVEF 60-65%. * Normal LV chamber size and function. * Mild concentric left ventricular hypertrophy. * Moderate left ventricular diastolic dysfunction. * Atypical septal motion consistent with paced rhythm. Right Ventricle * Normal right ventricular structure and function. Left Atrium * Moderately dilated left atrium. Right Atrium * Moderately dilated right atrium. Interatrial Septum * Interatrial septum not well evaluated. Aortic Valve * Trileaflet aortic valve. * Mildly sclerotic aortic valve leaflets. * Mild aortic regurgitation. * No aortic stenosis. Mitral Valve * Normal mitral valve structure and function. * No mitral stenosis. * Trace mitral regurgitation. Tricuspid Valve * Normal tricuspid valve structure and function. * Trace tricuspid regurgitation. * No evidence of pulmonary hypertension. Pulmonic Valve * Pulmonic valve not well visualized. * Mild pulmonic regurgitation. Aorta * Normally sized aortic root. Pericardium * The pericardium appears normal. IVC * The IVC is not well evaluated. Device lead * A device lead was visualized in the right atrium and right ventricle. Pulmonary Artery * Pulmonary artery not well visualized. Consult Discharge Plan - Plan Referrals: Jodee Guo CNP [Primary Care Provider] - (2) Chest pain Qualifiers: Chest pain type: unspecified Qualified Code(s): R07.9 - Chest pain, unspecified (5) Diabetes Qualifiers: Diabetes mellitus type: type 2 Diabetes mellitus fdc insulin use: without terminal operations manager use Diabetes mellitus complication status: without complication Qualified Code(s): E11.9 - Type 2 diabetes mellitus without complications
[2019-01-14] MEDS ORDERED: Nitroglycerin 1,000 MCG/10 ML VIAL IV ONE (16:14)
[2019-01-14] MEDS ORDERED: *HR* Heparin 10,000 UNIT/10 ML VIAL ONE (16:14)
[2019-01-14] MEDS ORDERED: ISOVUE-370 200 ML INFUS..BTL ONE (16:14)
[2019-01-14] MEDS ORDERED: 0.9 % Sodium Chloride 1,000 ML ONE (16:14)
[2019-01-14] MEDS ORDERED: Heparin 1,000 UNITS/500 mL 500 ML ONE (16:14)
[2019-01-14] MEDS ORDERED: *HR* FentaNYL (PF) 100 MCG/2 ML VIAL ONE (16:22)
[2019-01-14] MEDS ORDERED: *HR* Midazolam HCl 2 MG/2 ML VIAL ONE (16:22)
--- NOTE | 2019-01-14 16:32 | Pre-Sedation Evaluation ---
Pre-sedation evaluation - Pre-sedation checklist Date of procedure: 01/14/19 Procedure: [facility] Recent Vitals: Last Vital Signs Temp 97.7 F 01/14/19 12:00 Pulse 50 01/14/19 12:00 Resp 19 01/14/19 12:00 BP 113/63 01/14/19 12:00 Pulse Ox 97 01/14/19 12:00 H&P (including ROS) documented in medical record: Yes Previous reaction to sedatives/anesthetics: No Dietary Status: NPO after Midnight Dentition: No loose teeth or bridges ASA Classification *see protocol: CLASS II-Mild systemic disease Cardiac Registry (Cardio Only) - Functional Capacity Functional Capacity: >=4 METS with symptoms - Clincal Frailty Scale Clinical Frailty Scale: Managing Well
[2019-01-14] MEDS ORDERED: Tirofiban 12.5 MG/250ML 12.5 MG/250 ML BAG ONE (16:48)
[2019-01-14] MEDS ORDERED: *HR* Ticagrelor 90 MG TABLET ONE (17:16)
--- NOTE | 2019-01-14 17:30 | Electrocardiograph Report ---
[place] [id number] Test Date: 2019-01-13 Pat Name: Jeremiah Sarkar Department: [id number] Room: 2A24 Gender: M Pool Technician: : 1950 Requested By: Stephanie Almazan Order Number: [id number] Reading MD: Migdalia Boo Measurements Intervals [place] Rate: 73 P: 38 PA: 166 QRS: 86 QRSD: 115 T: 62 QT: 404 QTc: 446 Interpretive Statements Sinus rhythm Nonspecific intraventricular conduction delay Electronically Signed On 01-14-2019 17:28:24 EDT by Migdalia Boo
--- NOTE | 2019-01-14 17:35 | Invasive Diagnostic Lab Proc ---
Name: Jeremiah Sarkar Date of Study: 01/14/2019 Date: 1950 Ht: 68.9in Medical Record#: [id number] Age: 68 Wt: 271.17lb Gender: Male BSA: 2.35 Order #: [id number] BMI: 40.16 Physicians Procedure Physician: Romy López MD Referring MD: Referring MD: Staff Name Position Time In Atif Robles RN Monitor 04:21 PM Varun Manley RN Weight Loss Centre Manager 04:21 PM Mady Leonardo RT (R) RT orientee 04:25 PM Niyah Pressley RN Scrub 04:25 PM Indications Indication Non-Stemi Procedures Performed Procedure L HRT ARTERY/VENTRICLE ANGIO Pre-Procedure Checklist Informed consent is complete signed and on chart. H&P is on chart. ID band is on and ID verified with patient. Patient NPO for procedure The procedure was described for the patient and questions were answered. Blood Pressure: 113/75 ECG is on chart. Rhythm: NSR Plan of Care Patient will tolerate the procedure without complications. Adequate level of comfort will be maintained. Hemodynamics will remain stable Patient will recover from procedure without complications. Respiratory function will be maintained. Cardiac rhythm will remain stable. Patient temperature will be maintained. Patient and/or family have verbalized understanding of the procedure. Patient Education Chief Complaint/Reason for Test: Cardiac Cath Developmental Category: Geriatric (65+ years) Developmentally Appropriate for Age: Yes Learning Barriers: None Education Needs: Procedure Education Method: Verbal Information Taught: Cardiac Cath Educational Evaluation: Able to repeat information Intravenous Access Time IV Size Location DC'd Fluid/Drip Rate Units RN 20g 1 08/03" Patent On Arrival Rt Antecubital 0.9NaCl Allergies Penicillin PCN Penicillins Vital Signs Time BP (mmHg) HR (bpm) O2 Sat. RR (bpm) LOC 04:21 PM / % 5 = Fully awake and oriented or at pre-proc level 04:22 PM / % 4 = Oriented but drowsy 04:37 PM / % 4 = Oriented but drowsy 04:52 PM / % 4 = Oriented but drowsy 04:27 PM 161 / 102 64 96 % 17 04:31 PM 136 / 98 63 92 % 15 04:36 PM 144 / 90 60 94 % 12 04:41 PM 143 / 98 60 95 % 17 04:46 PM 141 / 94 62 95 % 17 04:51 PM 139 / 91 61 95 % 14 04:56 PM 144 / 78 64 93 % 22 05:01 PM 132 / 89 59 94 % 13 05:06 PM 142 / 83 59 97 % 22 05:11 PM 135 / 92 61 97 % 15 05:16 PM 129 / 90 59 97 % 19 Procedural Medications Time Medication Dose Units Method Given By 04:25 PM Oxygen 2 L/min nasal cannula Varun Manley RN 04:28 PM Versed 1 mg Intravenous Varun Manley RN 04:28 PM Fentanyl 50 mcg Intravenous Varun Manley RN 04:39 PM Lidocaine 2% 19 ml Subcutaneous Romy López MD 04:51 PM Heparin 4500 units Intravenous Varun Manley RN 04:51 PM Aggrastat Bolus: 62 ml Intravenous Varun Manley RN 05:10 PM Nitroglycerin 200 mcg Intracoronary Tiffani López MD 04:56 PM Aggrastat 12.5mg/250ml 22.5 ml Intravenous Varun Manley RN 05:18 PM Brilinta 180 mg Orally Varun Manley RN Román Score Preprocedure Postprocedure Activity 2- Moves 4 extremities sustained head lift Activity 2- Moves 4 extremities sustained head lift Circulation 2- SBP +/= 20 points of pre-anesthetic level Circulation 2- SBP +/= 20 points of pre-anesthetic level Consciousness 2- Awake and alert oriented x 3 Consciousness 2- Awake and alert oriented x 3 O2 Saturation 2- Able to maintain O2 satruation of 92% on room air O2 Saturation 2- Able to maintain O2 satruation of 92% on room air Respiratory 2- Able to deep breathe and cough well Respiratory 2- Able to deep breathe and cough well Total Score 10 Total Score 10 Contrast Agent: Isovue Diagnostic Contrast: 148 ml Total Contrast: 148 ml Fluoro Dose: 50 mGy Activated Clotting Time Time Seconds to Clot 04:50 PM 169 Procedure Log Time Note Enter By 04:21 PM Pt arrived to quality assurance lab technician 2 at 16:21 sergio 04:21 PM Atif Robles RN Position: Monitor Time in: 16:21 opaelisa 04:21 PM Varun Manley RN Position: Weight Loss Centre Manager Time in: 16:21 sergio 04:21 PM Patient charges- Angio tray pack, Navilyst 3mm J, Pulse Oximetry and ACIST tubing and transducer oparker 04:21 PM Time: 16:21 Patient comfortable and pain free: Yes oparker 04:22 PM Time: 16:21LOC: 5 = Fully awake and oriented or at pre-proc level oparker 04:23 PM CathStat 04:24 PM Physician arrived 16:24 oparker 04:24 PM Andrew and sandra completed oparker 04:24 PM Sign in performed according to hospital policy. Informed consent was obtained. oparker 04:24 PM Procedure start 16: oparker 04:25 PM Hair removed from procedure site in holding area using clippers. Bilateral groin prepped with Chloraprep by Varun Manley RN, then patient was draped. Skin intact. oparker 04: PM Time: 16:25 Oxygen on at 2 L/min per nasal cannula by Varun Manley RN 04:25 PM Mady Leonardo RT (R) Position: RT orientee Time in: 16: oparfiona 04:25 PM Niyah Pressley RN Position: Scrub Time in: 16: oparker 04:26 PM Vitals capture started with the following parameters, Patient=Adult, Interval=5 min, Initial Yggweexy=156 mmHg, Deflation Rate=5 mmHg, Cuff placed on Left Arm 04:26 PM Recorded ECG: HR=68 Condition=Condition 1 04:27 PM HR=64 bpm, ANLA=076/102 mmhg, SpO2=96.0 %, Resp=17 B/min, Comment=NSR 04:28 PM Time: 16:28 Versed 1 mg Intravenous Given by Varun Manley RN 04:28 PM Time: 16:28 Fentanyl 50 mcg Intravenous Given by Varun Manley RN 04:31 PM HR=63 bpm, KSPT=415/98 mmhg, SpO2=92.0 %, Resp=15 B/min, EtCO2=38 mmHg, Comment=NSR 04:35 PM Pressure channel 1 zeroed. 04:36 PM HR=60 bpm, ABRW=294/90 mmhg, SpO2=94.0 %, Resp=12 B/min, EtCO2=38 mmHg, Comment=NSR 04:37 PM Time: 16:21 Patient comfortable and pain free: Yes oparfiona 04:37 PM Time: 16:22LOC: 4 = Oriented but drowsy oparker 04:39 PM Time out was performed according to hospital policy. Conscious sedation and anesthesia was achieved (see medication log with in this report above) oparker 04:40 PM Time: 16:39 19 ml Lidocaine 2% to right groin Subcutaneous Given by Romy López MD oparker 04:41 PM Micro-Introducer Kit utilized for sheath placement oparker 04:41 PM HR=60 bpm, EIVQ=726/98 mmhg, SpO2=95.0 %, Resp=17 B/min, EtCO2=42 mmHg, Comment=NSR 04:42 PM Access obtained by percutaneous puncture. 6Fr 10cm [place]um[place] sheath placed in right Femoral artery. [id number] oparker 04:42 PM 0.035 145cm Navilyst 3mmJ wire [id number] oparker 04:42 PM 5Fr FR 4 catheter inserted over the wire DNC oparker 04:42 PM RCA angiography performed in multiple views. oparker 04:43 PM Recorded Pressure: Ao, HR=61, Condition=Condition 1 (Aorta) Ao 138/89/111 04:44 PM Catheter removed oparker 04:44 PM 5Fr FL 4 catheter inserted over the wire DNC oparker 04:45 PM Recorded Pressure: Ao, HR=61, Condition=Condition 1 (Aorta) Ao 140/92/114 04:45 PM LCA angiography performed in multiple views. oparker 04:46 PM Catheter removed oparker 04:46 PM HR=62 bpm, EXYZ=934/94 mmhg, SpO2=95.0 %, Resp=17 B/min, EtCO2=39 mmHg, Comment=NSR 04:47 PM 5Fr Pigtail catheter inserted over the wire DNC oparker 04:47 PM Inflation device was opened. oparker 04:48 PM Lesion found in Mid LAD. Pre Stenosis: 95 Pre YUNI Flow: 3: Complete and Brisk Flow/Perfusion oparker 04:48 PM Recorded Pressure: LV, HR=64, Condition=Condition 1 (Left Ventricle) LV 138/13/14 04:48 PM Recorded Pressure: LV, Ao, HR=65, Condition=Condition 1 (Left Ventricle) LV 151/17/21, (Aorta) Ao 155/49/113 04:49 PM Catheter crossed the aortic valve and was selectively placed in the left ventricle. Pressures recorded on pullback for left heart catheterization. oparker 04:49 PM Catheter removed oparker 04:49 PM Wire removed oparker 04:49 PM .014 [employer] [place] 190cm guide wire across target lesion- successful. reused? No oparker 04:50 PM 6Fr XB LAD 3.5 [place] Bright-Tip guide catheter was used to cannulate the PCI vessel successfully. reused? No oparker 04:50 PM Recorded Pressure: Ao, HR=62, Condition=Condition 1 (Aorta) Ao 143/91/113 04:50 PM At 16:50 the ACT was 169 seconds. oparker 04:51 PM Time: 16:51 Heparin 4500 units Intravenous Given by Varun Manley RN oparker 04:51 PM Time: 16:51 Aggrastat Bolus: 62 ml Intravenous Given by Varun Manley RN Marinelli pump oparker 04:51 PM HR=61 bpm, DFLR=128/91 mmhg, SpO2=95.0 %, Resp=14 B/min, EtCO2=39 mmHg, Comment=NSR 04:52 PM Time: 16:37 Patient comfortable and pain free: Yes oparker 04:52 PM Time: 16:37LOC: 4 = Oriented but drowsy oparker 04:53 PM 2.0 mm x 12 mm Emerge [employer]or[employer] balloon across target lesion- successful. reused? No oparker 04:54 PM .014 [employer] [place] 190cm guide wire across target lesion- successful. reused? No oparker 04:55 PM Recorded Pressure: Ao, HR=65, Condition=Condition 1 (Aorta) Ao 134/88/109 04:56 PM Time: 16:56 Aggrastat 12.5mg/250ml 22.5 ml Intravenous Given by Varun Manley RN Marinelli pump oparker 04:56 PM HR=64 bpm, VSYA=282/78 mmhg, SpO2=93.0 %, Resp=22 B/min, EtCO2=38 mmHg, Comment=NSR 04:58 PM Balloon inflated @ 6 otny for 15 seconds oparker 04:58 PM Balloon inflated @ 6 tony for 12 seconds oparker 04:59 PM Recorded Pressure: Ao, HR=60, Condition=Condition 1 (Aorta) Ao 118/75/95 05:01 PM HR=59 bpm, MBWP=706/89 mmhg, SpO2=94.0 %, Resp=13 B/min, EtCO2=38 mmHg, Comment=NSR 05:02 PM Balloon inflated @ 6 tony for 15 seconds oparker 05:02 PM Balloon inflated @ 6 tony for 10 seconds oparker 05:02 PM Balloon catheter removed intact. oparker 05:03 PM Recorded Pressure: Ao, HR=61, Condition=Condition 1 (Aorta) Ao 130/84/105 05:04 PM Recorded Pressure: Ao, HR=60, Condition=Condition 1 (Aorta) Ao 131/86/107 05:04 PM 3.5mm x 20mm Synergy drug-eluting stent across target lesion- successful Lot #[id number] oparker 05:06 PM HR=59 bpm, ZFEY=653/83 mmhg, SpO2=97.0 %, Resp=22 B/min, EtCO2=36 mmHg, Comment=NSR 05:07 PM Time: 16:52 Patient comfortable and pain free: Yes oparker 05:07 PM Time: 16:52LOC: 4 = Oriented but drowsy oparker 05:07 PM Stent deployed @ 9 tony for 15 seconds oparker 05:08 PM Stent balloon reinflated @ 11 tony for 22 seconds oparker 05:08 PM Stent balloon reinflated @ 14 tony for 6 seconds oparker 05:09 PM Recorded Pressure: Ao, HR=60, Condition=Condition 1 (Aorta) Ao 125/81/101 05:10 PM Stent delivery system removed intact. oparker 05:10 PM Guide wire removed intact. oparker 05:10 PM Guide wire removed intact. oparfiona 05:10 PM Time: 17:10 Nitroglycerin 200 mcg Intracoronary Given by Tiffani López MDrfiona 05:11 PM HR=61 bpm, HJZI=369/92 mmhg, SpO2=97.0 %, Resp=15 B/min, EtCO2=17 mmHg, Comment=NSR 05:12 PM Guide catheter removed intact. sergio 05:13 PM Procedure completed at 17:13 01/14/2019 sergio 05:13 PM Did you address YUNI flow and Dominance? YesCoronary Dominance: right sergio 05:14 PM Sign out completed: Radiation Dose 595.59 mGy, 49.6 mGy/cm2 Fluoro Time: 12.2 Isovue 370 - 200ml contrast 148 ml given by Romy López MD. Complications: None. The patient was discharged out of the dental laboratory manager in stable condition. Sedation minutes 45. Cardiac Rehab Consult needed: Yes. Confirmed administered medications: Yes oparker 05:14 PM Isovue 370 - 200ml,1 Bottle(s) used. oparker 05:14 PM Arterial sheath pulled, Angio-seal closure device used and was Successful [id number] S/N. oparker 05:14 PM Estimated Blood Loss: less than 20cc oparker 05:14 PM Post ECG NSR oparker 05:14 PM Post Blood Pressure 135/92 oparker 05:14 PM 17:14 Post Pulses Bilateral DP 2+ oparker 05:15 PM Information taught Cardiac Cath and Angioseal oparker 05:15 PM Education needs Procedure, Plan of Care, and Disease Process oparker 05:15 PM Learning barriers :None oparker 05:15 PM Education Methods Verbal oparker 05:15 PM Education evaluation Able to repeat information oparker 05:16 PM HR=59 bpm, OTGM=686/90 mmhg, SpO2=97.0 %, Resp=19 B/min, Comment=NSR 05:18 PM Time: 17:18 Brilinta 180 mg Orally Given by Varun Manley RN oparker 05:18 PM Site status No bleeding/hematoma - Rt Groin as reported by Niyah Pressley RN at 17:18 oparker 05:18 PM Opsite applied oparker 05:19 PM Family placed in consult room. oparker 05:21 PM Lesion found in Proximal LAD. Pre Stenosis: 25 Pre YUNI Flow: oparker 05:21 PM Proximal Left Anterior Descending Coronary Artery with 25% stenosis. If graft is supplying this territory, 0 % stenosis. oparker 05:21 PM Mid/Distal Left Anterior Descending Coronary Artery and diagonal branches with 95% stenosis. If graft is supplying this area, 0 % stenosis oparker 05:23 PM Patient out of room: 17:23 oparker 05:27 PM Report given to catherine PALACIOS Pt taken to 2A Room #24. 17:26 oparker Complications Complication None Hemodynamics Pressures Site Systolic/A Wave Diastolic/V Wave Mean AO 138 89 111 AO 140 92 114 LV 138 13 14 LV 151 17 21 AO 155 49 113 AO 143 91 113 AO 134 88 109 AO 118 75 95 AO 130 84 105 AO 131 86 107 AO 125 81 101 Post Procedure Information Blood Pressure: 135/92 mmHg Rhythm: NSR Post procedural instructions were given Closure Device Time Device Success/Fail 01/14/2019 5:16:00 PM Angio-Seal VIP Successful Site Checks Time Location Status Staff Sheath In? Note 05:18 PM Rt Groin No bleeding/hematoma Niyah Pressley RN Pulses Time Site Pre-Procedure Post-Procedure Note Bilateral radial 2+ Bilateral DP 1+ 5:14:00 PM Bilateral DP 2+ Updated by Varun Manley RN on 01/14/2019 5:28:11 PM electronically signed on 01/14/2019 5:29:15 PM with status of Final
[2019-01-15] MEDS: Insulin LISPRO 300 UNITS/3 ML VIAL SQ SCH ×2 (00:37→06:46)
[2019-01-15 05:43] LABS: Basophils % 0.3 %; Eosinophils # 0.1 K/mcL (0.0-0.6); Eosinophils % 1.3 %; Hematocrit 41.3 % (37.5-50.1); Hemoglobin 14.3 g/dL (12.9-16.9); Immature Granulocytes % 0.3 % (0-4); Lymphocytes # 1.6 K/mcL (0.6-4.6); Lymphocytes % 21.3 %; Mean Corpuscular HGB Conc 34.6 g/dL (31.6-35.5); Mean Corpuscular Hemoglobin 31.8 pg (28.0-33.3); Mean Corpuscular Volume 91.8 fL (83.0-100.0); Mean Platelet Volume 10.3 fL (9.4-12.4); Monocytes # 0.8 K/mcL (0.0-1.3); Monocytes % 9.8 %; Neutrophils # 5.1 K/mcL (1.6-8.9); Platelet Count 197 K/mcL (140-400); White Blood Count 7.7 K/mcL (4.3-11.1)
[2019-01-15 06:04] LABS: Chol/HDL Ratio 4.4 (0-4.9)
[2019-01-15 06:08] LABS: BUN/Creatinine Ratio 19 (6-26); Blood Urea Nitrogen 12 mg/dL (8-23); Calcium 9.6 mg/dL (8.6-10.3); Carbon Dioxide 27 mEq/L (23-29); Chloride 105 mEq/L (98-107); Glucose 120 mg/dL (70-105); Osmolality,Calculated 291 (280-300); Potassium 3.7 mEq/L (3.5-5.1); Sodium 140 mEq/L (136-145); eGFR For African Americans > 60 (> 60); eGFR For Non-African Americans > 60 (> 60)
[2019-01-15 09:00] LABS: Estimated Average Glucose 120 mg/dl
[2019-01-15] MEDS ORDERED: *HR* Ticagrelor 90 MG TABLET PO SCH (09:00)
[2019-01-15] MEDS: Aspirin Enteric Coated 81 MG Tablet PO SCH (09:12)
--- NOTE | 2019-01-15 11:07 | Cardiology Progress Note ---
Date of Encounter: 01/15/19 Time of Encounter: 11:05 Assessment and Plan (1) Non-STEMI (non-ST elevated myocardial infarction) Current Visit: Yes Status: Acute Troponin elevation 0.10, 0.16, 0.41. EKG NSR with no acute ST changes. C/o typical chest pain symptoms. H/o mild CAD on [facility] in 2011. 40% stenosis in mLAD and 1st dx artery. TTE shows LVEF 60-65%. Mild LVH. Moderate LV diastolic dysfunction. Atypical septal motion consistent with paced rhythm. Normal right ventricular structure and function. Mild aortic regurgitation. Mild pulmonic regurgitation. No evidence of pulmonary hypertension. A device lead was visualized in the right atrium and right ventricle. LHC completed and patient received PTCA/PAN to the mLAD. Minimal CAD otherwise. Pt with one episode SOB after procedure (pt trying to eat while laying flat). Appears euvolemic. Recommend ambulating in hallway prior to d/c to re-assess symptoms. Continue brilinta, Asa, statin, and bb. Pt to fill meds here. Importance of DAPT with asa and brilinta uninterrupted for min one year revi ewed. Patient planning on gastric sleeve. This will be on hold, patient voices understanding. Cardiac rehab ordered. Cardiology will sign off. Out-pt f/u will be coordinated with his customer sales service manager Dr. Sebastian. (2) Hyperlipemia Current Visit: No Status: Chronic Continue statin therapy Qualifiers: Hyperlipidemia type: mixed hyperlipidemia Qualified Code(s): E78.2 - Mixed hyperlipidemia (3) Pacemaker Current Visit: No Status: Resolved H/o PPM for SSS in 2006. Battery change in 2015. Followed with Dr. Sebastian at [place]. Need f/u here at [place] with Dr. Sebastian. (4) CAD (coronary artery disease) Current Visit: No Status: Chronic Mild non-obstructive CAD on [facility] in 2011. PCI to LAD yesterday. Asa, statin, brilinta, and bb recommended. Qualifiers: Coronary Disease-Associated Artery/Lesion type: [place] artery [place] vs. transplanted heart: [place] heart Associated angina: angina presence unspecified Qualified Code(s): I25.10 - Atherosclerotic heart disease of [place] coronary artery without angina pectoris Discussion w patient/family: The assessment and plan as outlined above was discussed with the patient and/or family members who expressed understanding and agreement. All questions were ans wered. Thank you for involving us in the care of your patient. Please call with any questions. Subjective Principal diagnosis: NSTEMI Interval history: S/p PCI to the mLAD. No complication. Pt reported one episode of SOB while tryin g to eat yesterday evening. Denies chest pain. Objective Vital Signs, Last 4 Hours Temp Pulse Resp BP Pulse Ox 01/15/19 09:05 96 01/15/19 08:24 97.9 F 65 16 111/73 96 General: Conversant, No Apparent Distress HEENT: Atraumatic, Normocephaly, Mucus Membranes Moist Neck: No JVD, Normal carotid pulses Cardiac: Reg Rate and Rhythm, Normal S1 and S2, No Murmur Lungs: Normal Breath Sounds, No Wheeze, Rales, Rhonchi Neuro: Alert and responsive, No focal deficits noted Abdomen: Soft, Non-Tender Skin: No rashes noted on visualized skin, Other (right groin soft, nontender) Musculoskeletal: No Chest Wall Tenderness Extremities: No Clubbing, No Cyanosis, No Edema, Normal Pulses Results 01/15/19 05:32 01/15/19 05:32 Lab Results 01/14/19 01/15/19 01/15/19 10:53 05:32 05:32 WBC 7.7 Hgb 14.3 D Hct 41.3 Plt Count 197 Sodium 140 Potassium 3.7 Chloride 105 Carbon Dioxide 27 BUN 12 Creatinine 0.63 L Glucose 120 H Calcium 9.6 Troponin I 0.42 H* - Imaging and Cardiology Echo: pending Cardiac cath: report reviewed - EKG Interpretation EKG results cardiology: personally reviewed Consult Discharge Plan - Plan Referrals: Jodee Guo CNP [Primary Care Provider] - 01/22/19 8:30 am
[2019-01-15 11:22] VITALS: BP 109/68
[2019-01-15] MEDS ORDERED: Insulin LISPRO 300 UNITS/3 ML VIAL SQ SCH ×2 (11:30→21:00)
--- NOTE | 2019-01-15 12:00 | Discharge Summary ---
- NOTES TO OUTPATIENT PROVIDER Notes to Outpatient Provider: Patient with history of coronary artery disease, hyperlipidemia, prior CVA was hospitalized here after presenting to the ER with complaints of chest pain. He was diagnosed with acute non-ST elevation [place] and treated with IV heparin. Evaluated by cardiology and underwent left heart catheterization yesterday. He was found to have severe 1 vessel coronary artery disease and underwent drug-eluting stent placement to mid LAD. Patient is currently on aspirin and brilinta. He is to be on dual antiplatelet therapy for at least 1 year. He will follow up with cardiology as outpatient for further management. Date of Encounter: 01/15/19 Time of Encounter: 10:20 - Discharge Diagnosis (1) Non-STEMI (non-ST elevated myocardial infarction) Priority: Primary Status: Acute (2) Chest pain Priority: Secondary Status: Acute Qualifiers: Chest pain type: unspecified Qualified Code(s): R07.9 - Chest pain, unspecified (3) Pacemaker Priority: Secondary Status: Chronic (4) DVT prophylaxis Priority: Secondary Status: Acute (5) Diabetes Priority: Secondary Status: Acute Qualifiers: Diabetes mellitus type: type 2 Diabetes mellitus intermediate insulin use: [facility] intermediate use Diabetes mellitus complication status: without complication Qualified Code(s): E11.9 - Type 2 diabetes mellitus without compl ications Hospital course: Mr. Sarkar is a 68 year old male Patient with history of coronary artery disease, hyperlipidemia, prior CVA was hospitalized here after presenting to the ER with complaints of chest pain. He was diagnosed with acute non-ST elevation [place] and treated with IV heparin. Evaluated by cardiology and underwent left heart catheterization yesterday. He was found to have severe 1 vessel coronary artery disease and underwent drug-eluting stent placement to mid LAD. Patient is currently on aspirin and brilinta. He is to be on dual antiplatelet therapy for at least 1 year. He will follow up with cardiology as outpatient for further management. 2-D echocardiogram done here showed an EF of 60-65% with moderate left ventricular diastolic dysfunction. Patient is not being discharged on SAM inhibitor or ARB at this point as his with the aly dosage had just been increased. Eventually he will follow up with cardiology and recommended to sta rt SAM inhibitor or ARB as long as his blood pressure is able to tolerate it. Discharge discussed with: patient, travel sales consultant - Time Spent with Patient Total time spent providing and/or coordinating discharge services: Time spent: Greater than 30 minutes (40 min) - Discharge Medications Prescriptions: New Ticagrelor [Brilinta] 90 mg PO BID #60 tablet Metoprolol [Lopressor] 25 mg PO BID #60 tablet Aspirin Enteric Coated [Aspirin EC] 81 mg PO DAILY #30 tablet. Continued Metoprolol [Lopressor] 12.5 mg PO BID traZODone [TraZODone] 50 mg PO HS Cholecalciferol (Vitamin D3) [Vitamin D3] 5,000 unit PO QAM Home Medications: Metoprolol [Lopressor] 12.5 mg PO BID 01/13/19 [History] traZODone [TraZODone] 50 mg PO HS 01/13/19 [History] Cholecalciferol (Vitamin D3) [Vitamin D3] 5,000 unit PO QAM 01/14/19 [History] Aspirin Enteric Coated [Aspirin EC] 81 mg PO DAILY #30 tablet. 01/15/19 [Rx] Metoprolol [Lopressor] 25 mg PO BID #60 tablet 01/15/19 [Rx] Ticagrelor [Brilinta] 90 mg PO BID #60 tablet 01/15/19 [Rx] Allergies/Adverse Reactions: Allergy/AdvReac Type Severity Reaction Status Date / Time Penicillins [PCN] Allergy Severe Anaphylaxis Verified 01/14/19 23:05 Date of admission: 01/14/19 17:04 Primary care physician: Jodee Guo Consults: 01/14/19 00:14 Consult to Cardiology [CONS] Routine Comment: Consulting Provider: Cardiology Steph Reason for Consult: Chest pain, NSTEMI with elevated troponin Call Completed: No 01/14/19 10:35 Consult to Cardiac Rehabilitation-Phase1 [CONS] Routine Comment: Reason for Consult: NSTEMI Call Completed: Yes Discharging clinician: Sukhwinder Murrieta Anticipated date of discharge: 01/15/19 - Constitutional Vitals: Temp Pulse Resp BP Pulse Ox 98.0 F 64 16 109/68 96 01/15/19 11:07 01/15/19 11:07 01/15/19 11:07 01/15/19 11:07 01/15/19 11:07 General appearance: Present: cooperative, A&O X 3, pleasant, no acute distress, answers questions appropriately Exam: General: Patient is alert, no acute distress, oriented x 3 ENT: Mucous membranes moist Respiratory: Good respiratory effort. Normal breath sounds. No wheezing or crackles. Cardiovascular: Regular rate and rhythm. s1 and s2 normal No clicks, rubs, gallops, or murmurs. No pedal edema Abdomen: Abdomen is soft, nontender. Bowel sounds are present Musculoskeletal: Spontaneously moving all extremities Skin: warm, dry, intact. Neuro: Alert oriented x 3 normal cranial nerves, no focal deficits - Patient Status Disposition: Home, Self-Care Condition: Good Functional capacity at discharge: independent ambulation Overall status at discharge: patient is progressing back to baseline - Discharge Instructions Instructions: Chest Pain (DC) Follow Up With: Jodee Guo CNP [Primary Care Provider] - 01/22/19 8:30 am Romy López [Partnered Physician] - (in 1-2 weeks) - Diet and Activity Activity: as per the cardiac rehab, increase activity as tolerated Diet: diabetic diet, low fat, low cholesterol, low salt diet
--- NOTE | 2019-01-17 11:31 | Electrocardiograph Report ---
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
== END 2019-01-15 12:49 | disposition home or self-care (01) | DRG 247 ==
LOC: EMEROOARM 17:54 → 2ANU 17:54 → SUATTDRO 01-14 17:04
PROVIDERS: ADMIT Internal Medicine; ATTEND Internal Medicine

== ENCOUNTER 2019-01-20 15:09 | Inpatient (IN) ==
[2019-01-20] MEDS ORDERED: 0.9 % Sodium Chloride 500 ML ONE ×2 (15:19→15:36)
[2019-01-20] MEDS ORDERED: 0.9 % Sodium Chloride 1,000 ML IVC ONE (15:23)
[2019-01-20] MEDS ORDERED: 0.9 % Sodium Chloride 500 ML IVC ONE ×4 (15:24→16:11)
--- NOTE | 2019-01-20 15:31 | Emergency Department Note ---
Disposition Clinical Impression: Cardiogenic shock Disposition: Still a Patient Time of Disposition: 15:31 General Adult HPI - General Chief complaint: ED Shortness of Breath/Dyspnea Stated complaint: JOSEPHINE,Dizziness, Stent placed monday Time Seen by Provider: 01/20/19 15:22 Source: patient, family Limitations: no limitations Nursing Notes Reviewed: Yes Vital Signs Reviewed: Yes - History of Present Illness HPI Narrative: Attestation note: Patient was seen with the emergency medicine resident/nurse practitioner/physician talent acquisition assistant/transitional resident/medical student: Dr. Betty Luu. I was present for the significant portions of the performance and interpretation of procedures and EKGs. I have personally performed a face to face evaluation on this patient. I have reviewed and agree with history and physical examination patient management and disposition. 68-year-old male by wheelchair from waiting room dyspnea and lightheadedness. He had one LAD stent placed on the of this month comes in complaining of shortness breath and no chest pain just feeling very fatigued little sallow but not diaphoretic. Patient's lungs are clear no leg swelling EKG shows sinus rhythm without acute ischemic changes. Patient was hypertensive systolic of 86 patient was hypoxic at 91% on room air although no history of known COPD or lung problem patient got some more to responded well went up to 97% on 4 l. Patient is getting 500 mL bolus and have his blood pressure rechecked. Patient of note has recently had his metoprolol dose change from 12.5 mg twice daily to 25 mg twice daily his heart rate was 60 for this quite seen low enough to cause a cardiogenic failure and [place] in about 17% of cases Resultant Dyspnea but I Do Not Know If That Affects Blood Pressure Per Se We Did Consult the Pharmacist on Duty. Providing 45 Minutes Critical Care Service for This Patient Patient Is Can Get Fluid Resuscitation Screening Labs X-Ray with Admission. Admission Disposition Pending Pain Scale: 0 - Related Data Home Medications Medication Instructions Recorded Confirmed Metoprolol [Lopressor] 25 mg PO BID 01/13/19 01/20/19 traZODone [TraZODone] 50 mg PO HS 01/13/19 01/20/19 Cholecalciferol (Vitamin D3) 5,000 unit PO QAM 01/14/19 01/20/19 [Vitamin D3] Previous Rx's Medication Instructions Recorded Aspirin Enteric Coated [Aspirin EC] 81 mg PO DAILY #30 tablet. 01/15/19 Ticagrelor [Brilinta] 90 mg PO BID #60 tablet 01/15/19 Allergies Allergy/AdvReac Type Severity Reaction Status Date / Time Penicillins [PCN] Allergy Severe Anaphylaxis Verified 01/14/19 23:05 Past Medical History - Past Medical History Medical history: Reports: coronary artery disease, CVA, hyperlipidemia, hypertension, myocardial infarction, other Surgical history: Reports: bariatric surgery (gastric band), knee replacement (left), other (parotid gland removal, tongue growth removal ), pacemaker Psychiatric history: Reports: depression - Social History Smoking Status: Former smoker Smokeless Tobacco Status: No Alcohol use: Reports: occasionally Drug use: Reports: none Physical Exam - General Limitations: no limitations General appearance: alert Course Vital Signs O2 Sat by Pulse Oximetry 94 01/20/19 15:16 Temperature 98.4 F 01/20/19 15:17 Pulse Rate 65 01/20/19 15:17 Respiratory Rate 22 01/20/19 15:17 Blood Pressure 86/62 01/20/19 15:17 O2 Sat by Pulse Oximetry 94 01/20/19 15:17 Oxygen Delivery Oxygen Delivery Room Air
--- NOTE | 2019-01-20 15:33 | Emergency Department Note ---
Disposition Clinical Impression: Shortness of breath Congestive heart failure Qualifiers: Heart failure type: unspecified Heart failure chronicity: acute on chronic Qualified Code(s): I50.9 - Heart failure, unspecified Hypotension Qualifiers: Hypotension type: unspecified hypotension type Qualified Code(s): I95.9 - Hypotension, unspecified Disposition: Admitted As Inpatient Condition: Fair Referrals: Jodee Guo CNP [Primary Care Provider] - Forms: ED Satisfaction Letter Time of Disposition: 17:13 General Adult HPI - General Chief complaint: ED Shortness of Breath/Dyspnea Stated complaint: JOSEPHINE,Dizziness, Stent placed monday Time Seen by Provider: 01/20/19 15:22 Source: patient, family Limitations: no limitations Nursing Notes Reviewed: Yes Vital Signs Reviewed: Yes - History of Present Illness HPI Narrative: 68-year-old male who presents emergency Department with complaints of shortness of breath, lightheadedness. The patient was admitted here by myself on 01/14/19 due to STEMI with subsequent stenting of the LAD. He was discharged on 01/15/19. Since that time he has been resting comfortably without difficulty but today started to note lightheadedness and dizziness. He has had shortness of breath since the procedure but it progressively got worse. He denies any chest pain at this time. He denies any nausea, vomiting, abdominal pain, back pain, numbness, tingling, headache. The patient did have increase of his metoprolol from 12.5 twice a day up to 25 twice a day and has been on Brilinta. Pain Scale: 0 - Related Data Home Medications Medication Instructions Recorded Confirmed Metoprolol [Lopressor] 25 mg PO BID 01/13/19 01/20/19 traZODone [TraZODone] 50 mg PO HS 01/13/19 01/20/19 Cholecalciferol (Vitamin D3) 5,000 unit PO QAM 01/14/19 01/20/19 [Vitamin D3] Previous Rx's Medication Instructions Recorded Aspirin Enteric Coated [Aspirin EC] 81 mg PO DAILY #30 tablet. 01/15/19 Ticagrelor [Brilinta] 90 mg PO BID #60 tablet 01/15/19 Allergies Allergy/AdvReac Type Severity Reaction Status Date / Time Penicillins [PCN] Allergy Severe Anaphylaxis Verified 01/14/19 23:05 Review of Systems: ROS per history of present illness, all other systems reviewed and negative or normal. All systems ED: reviewed and negative except as stated. Review of Systems: As Per HPI Past Medical History - Past Medical History Medical history: Reports: coronary artery disease, CVA, hyperlipidemia, hypertension, myocardial infarction, other Surgical history: Reports: bariatric surgery (gastric band), knee replacement (left), other (parotid gland removal, tongue growth removal ), pacemaker Psychiatric history: Reports: depression - Social History Smoking Status: Former smoker Smokeless Tobacco Status: No Alcohol use: Reports: occasionally Drug use: Reports: none Physical Exam General: Conversant. No apparent distress. Follow commands. Appears stated age. Neck: No JVD. Trachea midline. Neck supple. Eyes: PERRL. No scleral icterus. HENT: Normocephalic and atraumatic. Moist mucus membranes. Cardiovascular: Regular rate and rhythm. Normal S1 and S2. No murmurs appreciated. Normal capillary refill. Extremities well perfused with 2+ distal pulses bilaterally. No edema. Pulmonary: Normal and equal breath sounds bilaterally, anteriorly and posteriorly. No wheezes, rales, or rhonchi. Not in respiratory distress. Speaks in full sentences. Abdomen: Soft, nondistended, and tontender. No bruits or masses. No guarding. Neuro: Alert and oriented x3. No slurred speech. No focal deficits noted. Skin: No rashes noted on visualized skin. Musculoskeletal: No bony abnormalities visualized. Moves all extremities. Psych: Normal mood. Pleasant. Makes appropriate eye contact. - General Limitations: no limitations General appearance: alert Course - Reevaluation(s) Reevaluation #1: Patients repeat BP 100s systolic. After 1250mL Time: 16:20 Vital Signs O2 Sat by Pulse Oximetry 94 01/20/19 15:16 Temperature 98.4 F 01/20/19 15:17 Pulse Rate 61 01/20/19 16:15 Respiratory Rate 18 01/20/19 16:15 Blood Pressure 100/65 01/20/19 16:20 O2 Sat by Pulse Oximetry 98 01/20/19 16:15 Oxygen Delivery Oxygen Delivery Nasal Cannula Medical Decision Making - [facility] Narrative Medical decision making narrative: 68-year-old male with history of recent STEMI with intervention on 01/14/19 who presents emergency department with complaints of shortness of breath and lightheadedness. On arrival the patient has heart rate in the 60s with hypoten vini with systolic in the 80s. Otherwise EKG shows no acute ischemic changes. His lungs are clear to auscultation. He has no significant peripheral edema concerning for CHF. Accu-Chek greater than 90. Given the patient's recent history did obtain CBC, BMP, d-dimer, troponin, chest x-ray. The patient has no significant anemia or leukocytosis. Troponin 1 less than 0.03. Chest x-ray shows findings concerning for CHF. The patient was hypotensive which responded to 1.25 L with improvement and in his blood pressure, did attempt to measure IVC on US for determination of volume status but this was unsuccessful. D-dimer was age adjusted normal therefore did not pursue further evaluation for pulmonary embolism. He does continue on Brillinta and his metoprolol dosing was doubled while hospitalized and these may be the sources of his shortness of breath and hypotension. ED pharmacist states that shortness of breath is a common side effect of brillinta. Given his several risk factors and hypertension I did discuss the case with on-call hospitalist, Dr. Hinton who takes the patient to the inpatient service. Patient agrees with and understands course of treatment plan including plan for admission. All questions answered. - Medical Records Medical records reviewed: Yes I reviewed the patient's medical records. - Lab Data Lab results reviewed: Yes I reviewed the patient's lab results. Result diagrams: 01/20/19 15:42 01/20/19 16:06 Lab Results 01/20/19 01/20/19 01/20/19 Range/Units 15:25 15:25 15:25 WBC (4.3-11.1) K/mcL RBC (4.19-5.50) M/mcL Hgb (12.9-16.9) g/dL Hct (37.5-50.1) % MCV (83.0-100.0) fL MCH (28.0-33.3) pg MCHC (31.6-35.5) g/dL RDW (11.5-14.5) % Plt Count (140-400) K/mcL MPV (9.4-12.4) fL Immature Gran % (0-4) % Seg Neutrophils % % Lymphocytes % % Monocytes % % Eosinophils % % Basophils % % Neutrophils # (1.6-8.9) K/mcL Lymphocytes # (0.6-4.6) K/mcL Monocytes # (0.0-1.3) K/mcL Eosinophils # (0.0-0.6) K/mcL Basophils # (0.0-0.2) K/mcL Immature Plt Fraction (1.1-6.1) % D-Dimer (0-500) ng/mLFEU Sodium Cancelled Potassium Cancelled Chloride Cancelled Carbon Dioxide Cancelled BUN Cancelled Creatinine Cancelled Est GFR ( Amer) Cancelled Est GFR (Non-Af Amer) Cancelled BUN/Creatinine Ratio Cancelled Glucose Cancelled Calculated Osmolality Cancelled Lactic Acid (0.5-2.2) mmol/L Calcium Cancelled Troponin I < 0.03 (< 0.04) ng/mL B-Natriuretic Peptide (Less than 100) pg/mL Specimen Rejected Clotted Clotted 01/20/19 01/20/19 01/20/19 Range/Units 15:34 15:42 15:42 WBC 6.8 (4.3-11.1) K/mcL RBC 4.18 L (4.19-5.50) M/mcL Hgb 13.2 (12.9-16.9) g/dL Hct 39.1 (37.5-50.1) % MCV 93.5 (83.0-100.0) fL MCH 31.6 (28.0-33.3) pg MCHC 33.8 (31.6-35.5) g/dL RDW 12.2 (11.5-14.5) % Plt Count 204 (140-400) K/mcL MPV 10.9 (9.4-12.4) fL Immature Gran % 0.4 (0-4) % Seg Neutrophils % 60.4 % Lymphocytes % 24.1 % Monocytes % 11.8 % Eosinophils % 2.9 % Basophils % 0.4 % Neutrophils # 4.1 (1.6-8.9) K/mcL Lymphocytes # 1.6 (0.6-4.6) K/mcL Monocytes # 0.8 (0.0-1.3) K/mcL Eosinophils # 0.2 (0.0-0.6) K/mcL Basophils # 0.0 (0.0-0.2) K/mcL Immature Plt Fraction 4.1 (1.1-6.1) % D-Dimer (0-500) ng/mLFEU Sodium Potassium Chloride Carbon Dioxide BUN Creatinine Est GFR ( Amer) Est GFR (Non-Af Amer) BUN/Creatinine Ratio Glucose Calculated Osmolality Lactic Acid 1.2 (0.5-2.2) mmol/L Calcium Troponin I (< 0.04) ng/mL B-Natriuretic Peptide 29 (Less than 100) pg/mL Specimen Rejected 01/20/19 01/20/19 Range/Units 15:44 16:06 WBC (4.3-11.1) K/mcL RBC (4.19-5.50) M/mcL Hgb (12.9-16.9) g/dL Hct (37.5-50.1) % MCV (83.0-100.0) fL MCH (28.0-33.3) pg MCHC (31.6-35.5) g/dL RDW (11.5-14.5) % Plt Count (140-400) K/mcL MPV (9.4-12.4) fL Immature Gran % (0-4) % Seg Neutrophils % % Lymphocytes % % Monocytes % % Eosinophils % % Basophils % % Neutrophils # (1.6-8.9) K/mcL Lymphocytes # (0.6-4.6) K/mcL Monocytes # (0.0-1.3) K/mcL Eosinophils # (0.0-0.6) K/mcL Basophils # (0.0-0.2) K/mcL Immature Plt Fraction (1.1-6.1) % D-Dimer 559 H (0-500) ng/mLFEU Sodium 140 Potassium 4.8 Chloride 108 H Carbon Dioxide 28 BUN 28 H Creatinine 0.93 Est GFR ( Amer) > 60 Est GFR (Non-Af Amer) > 60 BUN/Creatinine Ratio 30 H Glucose 95 Calculated Osmolality 295 Lactic Acid (0.5-2.2) mmol/L Calcium 8.9 Troponin I (< 0.04) ng/mL B-Natriuretic Peptide (Less than 100) pg/mL Specimen Rejected - Radiology Data Radiology results reviewed: Yes I reviewed the patient's radiology results. Chest X-Ray 01/20/19 15:23 IMPRESSION: Findings suggest congestive heart failure D/ / Ralph Jacome MD / Ralph Jacome MD Interpreting Provider: Ralph Jacome MD - EKG Data EKG #1 EKG attestation: Yes I reviewed and interpreted this EKG. EKG results narrative: Normal sinus rhythm rate of 64. Normal axis. There are no acute ischemic changes. When compared with prior from 01/13/19 there are no new changes.
[2019-01-20 16:32] LABS: Basophils % 0.4 %; Eosinophils # 0.2 K/mcL (0.0-0.6); Eosinophils % 2.9 %; Hematocrit 39.1 % (37.5-50.1); Hemoglobin 13.2 g/dL (12.9-16.9); Immature Granulocytes % 0.4 % (0-4); Immature Platelets 4.1 % (1.1-6.1); Lymphocytes # 1.6 K/mcL (0.6-4.6); Lymphocytes % 24.1 %; Mean Corpuscular HGB Conc 33.8 g/dL (31.6-35.5); Mean Corpuscular Hemoglobin 31.6 pg (28.0-33.3); Mean Corpuscular Volume 93.5 fL (83.0-100.0); Mean Platelet Volume 10.9 fL (9.4-12.4); Monocytes # 0.8 K/mcL (0.0-1.3); Monocytes % 11.8 %; Neutrophils # 4.1 K/mcL (1.6-8.9); Platelet Count 204 K/mcL (140-400); Red Blood Count 4.18 M/mcL (4.19-5.50); Red Cell Distribution Width 12.2 % (11.5-14.5); Segmented Neutrophils % 60.4 %; White Blood Count 6.8 K/mcL (4.3-11.1)
[2019-01-20 16:51] LABS: BUN/Creatinine Ratio 30 (6-26); Blood Urea Nitrogen 28 mg/dL (8-23); Calcium 8.9 mg/dL (8.6-10.3); Carbon Dioxide 28 mEq/L (23-29); Chloride 108 mEq/L (98-107); Glucose 95 mg/dL (70-105); Osmolality,Calculated 295 (280-300); Potassium 4.8 mEq/L (3.5-5.1); Sodium 140 mEq/L (136-145); eGFR For African Americans > 60 (> 60); eGFR For Non-African Americans > 60 (> 60)
[2019-01-20] MEDS ORDERED: Naloxone 0.4 MG/ML INJ IVP PRN (17:44)
[2019-01-20] MEDS ORDERED: Furosemide 40 MG/4 ML VIAL IVP ONE (17:48)
--- NOTE | 2019-01-20 18:38 | Internal Med History&Physical ---
Date of Encounter: 01/20/19 Time of Encounter: 18:00 Internal Medicine - H&P: HPI Chief complaint: Progressive shortness of breath of 3 days duration History of present illness: Mr. Sarkar is a 68 year old male with pmh of recent PA s/p stent, s/p pacemaker placement for sick sinus syndrome recently discharged this monday s/p drug eluting stent placement in LAD presenting with complaints of shortness of breath of 3 days duration with an acute worsening in the last 24 hrs. Patient says since he left the hospital he has been feeling more sleepy and has had decreased exercise tolerance. In the last 24 hrs, he has been more severely short of breath and has been unable to complete any meaningful activity without becoming extrremely winded. He denies any other acute symptoms such as chest pain or fevers or chills or lower extremity swelling. In the ER, a chest xray showed pulmonary vascular congestion. He was hypotensive to the mid 80s however, so he was given a bolus of 500ml of normal saline. His BP is in the low 100s and he is saturating 98% on 4L. He is being admitted for further management Past Med Surg Social Fam HX - Past Medical History Medical history: coronary artery disease, CVA, hyperlipidemia, hypertension, myocardial infarction, other Additional medical history: CVA-READING IMPAIRED. 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, lap band, 1 CARDIAC STENT, left knee - Social History Smoking Status: Former smoker Smokeless Tobacco Status: No Alcohol use: occasionally Drug use: none - Family History Mother Living Status: Hx Family Cardiac Disorders: Yes Hx Family Respiratory Disorders: No Hx Family Cancer: No Hx Family GI Disorders: No Hx Family Endocrine Disorder: No Hx Family Neuromuscular Disorders: No Hx Family Neurologic Disorders: No Hx Family HEENT Disorders: No Hx Family Autoimmune Disorders: No Internal Medicine - H&P: Meds Metoprolol [Lopressor] 25 mg PO BID 01/13/19 [History] traZODone [TraZODone] 50 mg PO HS 01/13/19 [History] Cholecalciferol (Vitamin D3) [Vitamin D3] 5,000 unit PO QAM 01/14/19 [History] Aspirin Enteric Coated [Aspirin EC] 81 mg PO DAILY #30 tablet. 01/15/19 [Rx] Ticagrelor [Brilinta] 90 mg PO BID #60 tablet 01/15/19 [Rx] Allergy/AdvReac Type Severity Reaction Status Date / Time Penicillins [PCN] Allergy Severe Anaphylaxis Verified 01/14/19 23:05 All Systems PM: A 10-system review of systems was performed and is negative for pertinent findings except as documented above in the HPI. - Constitutional Constitutional: no chills, no fever(s), no night sweats - EENT Eyes: no change in vision, no discharge, no pain, no photophobia Ears: no ear discharge, no ear pain, no tinnitus Nose, mouth and throat: no dysphagia, no nasal discharge, no neck pain, no sore throat - Cardiovascular Cardiovascular ROS IM: dyspnea, dyspnea on exertion, no chest pain, no diaphoresis, no lightheadedness, no palpitations, no syncope - Respiratory Respiratory: dyspnea, no cough, no wheezing, no excessive phlegm production - Gastrointestinal Gastrointestinal: no abdominal pain, no diarrhea, no hematemesis, no hematochezia, no melena, no nausea, no vomiting - Musculoskeletal Musculoskeletal ROS IM: no numbness, no tingling - Integumentary Integumentary IM: no rash, no unusual bruising - Neurological Neurological ROS: no confusion, no convulsions, no focal weakness, no numbness, no tingling, no tremor(s) - Hematologic/Lymphatic Hematologic/Lymphatic: no easy bruising - Constitutional Vitals: Temp Pulse Resp BP Pulse Ox 98.4 F 61 18 103/72 98 01/20/19 15:17 01/20/19 17:41 01/20/19 17:41 01/20/19 17:41 01/20/19 17:41 Exam: NAD - Head Head exam: Present: atraumatic, normocephalic - Eye Eye exam: Present: PERRL, conjuntiva pink, sclera anicteric Pupils: Present: PERRL - Neck Neck exam general surgery: Present: supple, trachea midline. Absent: lymphadenopathy - Respiratory Respiratory exam: Present: decreased breath sounds. Absent: accessory muscle use, rales, rhonchi, wheezes - Cardiovascular Cardiovascular exam: Present: RRR, +S1, +S2. Absent: diastolic murmur, gallop, rubs, systolic murmur - GI/Abdominal GI/Abdominal exam: Present: normal bowel sounds, soft, no peritoneal signs. Absent: distended, tenderness - Extremities Exam Extremities exam: Present: warm, radial pulses palpable and symmetrical. Absent: calf tenderness, cyanotic, pedal edema - Neurological Exam Neurological exam: Present: CN II-XII intact, oriented X3, no focal deficits. Absent: pronater drift, facial droop, speech deficit - Skin Skin exam: Present: dry, intact Internal Med - H&P Results - Labs CBC & Chem 7: 01/20/19 15:42 01/20/19 16:06 Labs: Short CBC 01/20/19 Range/Units 15:42 WBC 6.8 (4.3-11.1) K/mcL Hgb 13.2 (12.9-16.9) g/dL Hct 39.1 (37.5-50.1) % Plt Count 204 (140-400) K/mcL Neutrophils # 4.1 (1.6-8.9) K/mcL BMP 01/20/19 01/20/19 15:25 16:06 Sodium Cancelled 140 Potassium Cancelled 4.8 Chloride Cancelled 108 H Carbon Dioxide Cancelled 28 BUN Cancelled 28 H Creatinine Cancelled 0.93 Glucose Cancelled 95 Calcium Cancelled 8.9 Cardiac Enzymes 01/20/19 Range/Units 15:25 Troponin I < 0.03 (< 0.04) ng/mL - Impressions ITS Impressions Chest X-Ray 01/20/19 15:23 IMPRESSION: Findings suggest congestive heart failure D/ / Ralph Jacome MD / Ralph Jacome MD Interpreting Provider: Ralph Jacome MD - Assessment and Plan (1) Acute diastolic (congestive) heart failure Current Visit: Yes Status: Acute Assessment and plan: Pt comes in with shortness of breath and pulmonary vascular congestion post PA Concerning for acute diastolic CHF vs post PA pathology such as acute MR and ventricular wall complications Hold beta aly, start on lasix BID, obtain limited echo Cardiology consultedd and recs appreciated (2) Hypotension Current Visit: Yes Status: Acute Assessment and plan: Pt came in hypotensive with CHF post PA Received 500ml biolus in ER. BP now stable. Will proceed with diuresis with lasix Consider adding albumin/ inotropic support if indicated Qualifiers: Hypotension type: unspecified hypotension type Qualified Code(s): I95.9 - Hypotension, unspecified (3) CAD (coronary artery disease) Current Visit: Yes Status: Chronic Assessment and plan: Continue aspirin and brillinta Qualifiers: Coronary Disease-Associated Artery/Lesion type: [place] artery [place] vs. transplanted heart: [place] heart Associated angina: angina presence unspecif ied Qualified Code(s): I25.10 - Atherosclerotic heart disease of [place] c oronary artery without angina pectoris (4) DVT prophylaxis Current Visit: Yes Status: Acute Assessment and plan: Heparin sc - Time Spent With Patient Total time spent is greater than 50% in coordination of care (as documented) at patient's floor/unit and/or counseling patient:
[2019-01-20] MEDS ORDERED: *HR* Heparin 5,000 UNIT/ML VIAL SQ SCH (19:00)
[2019-01-20] MEDS: *HR* Ticagrelor 90 MG TABLET PO SCH (21:32)
[2019-01-20] MEDS: traZODone 50 MG TABLET PO SCH (21:32)
[2019-01-20] MEDS: Furosemide 40 MG/4 ML VIAL IVP SCH (21:32)
[2019-01-20 23:04] LABS: Bilirubin,Urine Negative (Negative); Blood,Urine Negative (Negative); Clarity,Urine Clear (Clear); Color,Urine Yellow (Yellow); Glucose,Urine (UA) Normal (Normal); Ketones,Urine Negative (Negative); Leukocyte Esterase,Urine Negative (Negative); Nitrite,Urine Negative (Negative); Protein,Urine Negative (Neg-Trace); Specific Gravity,Urine < 1.005 (1.010-1.025); Urobilinogen,Urine Normal (Normal)
[2019-01-21 07:00] LABS: Basophils % 0.4 %; Eosinophils # 0.2 K/mcL (0.0-0.6); Eosinophils % 2.8 %; Hematocrit 42.1 % (37.5-50.1); Hemoglobin 14.3 g/dL (12.9-16.9); Immature Granulocytes % 0.6 % (0-4); Lymphocytes # 1.9 K/mcL (0.6-4.6); Mean Corpuscular Hemoglobin 31.3 pg (28.0-33.3); Mean Corpuscular Volume 92.1 fL (83.0-100.0); Mean Platelet Volume 10.7 fL (9.4-12.4); Monocytes # 0.7 K/mcL (0.0-1.3); Platelet Count 203 K/mcL (140-400); Red Blood Count 4.57 M/mcL (4.19-5.50); Red Cell Distribution Width 12.3 % (11.5-14.5); Segmented Neutrophils % 58.2 %; White Blood Count 6.8 K/mcL (4.3-11.1)
[2019-01-21 07:21] LABS: BUN/Creatinine Ratio 33 (6-26); Blood Urea Nitrogen 24 mg/dL (8-23); Calcium 9.5 mg/dL (8.6-10.3); Carbon Dioxide 28 mEq/L (23-29); Chloride 101 mEq/L (98-107); Glucose 114 mg/dL (70-105); Magnesium 2.1 mg/dL (1.6-2.6); Osmolality,Calculated 293 (280-300); Potassium 4.3 mEq/L (3.5-5.1); Sodium 139 mEq/L (136-145); eGFR For African Americans > 60 (> 60); eGFR For Non-African Americans > 60 (> 60)
--- NOTE | 2019-01-21 07:48 | Internal Med Progress Note ---
Hospitalist Progress Note - Encounter Date of Encounter: 01/21/19 Time of Encounter: 07:40 - Subjective Interval History: No acute events overnight - Exam Vitals: Temp Pulse Resp BP Pulse Ox 97.9 F 66 18 102/78 96 01/21/19 03:53 01/21/19 05:53 01/21/19 03:53 01/21/19 05:53 01/21/19 03:53 Exam: General appearance: Present: A&O X 3, no acute distress Head exam: Present: normocephalic Respiratory exam: Present: CTAB. Absent: accessory muscle use, rales, rhonchi, wheezes Cardiovascular exam: Present: RRR, +S1, +S2. Absent: diastolic murmur, gallop, rubs, systolic murmur GI/Abdominal exam: Soft, NT, ND, +BS Extremities exam: Absent: pedal edema Neurological exam: Present: alert, oriented X3, no focal deficits. Absent: altered - Assessment and Plan (1) Acute diastolic (congestive) heart failure Current Visit: Yes Status: Acute Assessment and Plan: Pt comes in with shortness of breath and pulmonary vascular congestion post TX Concerning for acute diastolic CHF vs post TX pathology such as acute MR and ventricular wall complications vs SOB from brillinta Hold beta aly, start on lasix BID, obtain limited echo Plan to switch to plavix if echo is normal (2) Hypotension Current Visit: Yes Status: Acute Assessment and Plan: Pt came in hypotensive with CHF post TX Received 500ml biolus in ER. BP now stable. Will proceed with diuresis with lasix Consider adding albumin/ inotropic support if indicated (3) CAD (coronary artery disease) Current Visit: Yes Status: Chronic Assessment and Plan: Continue aspirin and brillinta (4) DVT prophylaxis Current Visit: Yes Status: Acute Assessment and Plan: Heparin sc - Time Spent with Patient Total time spent is greater than 50% in coordination of care (as documented) at patient's floor/unit and/or counseling patient: Internal Medicine: Result - Labs CBC & Chem 7: 01/21/19 06:45 01/21/19 06:45 Labs: Short CBC 01/20/19 01/21/19 Range/Units 15:42 06:45 WBC 6.8 6.8 (4.3-11.1) K/mcL Hgb 13.2 14.3 (12.9-16.9) g/dL Hct 39.1 42.1 (37.5-50.1) % Plt Count 204 203 (140-400) K/mcL Neutrophils # 4.1 4.0 (1.6-8.9) K/mcL BMP 01/20/19 01/20/19 01/21/19 15:25 16:06 06:45 Sodium Cancelled 140 139 Potassium Cancelled 4.8 4.3 Chloride Cancelled 108 H 101 Carbon Dioxide Cancelled 28 28 BUN Cancelled 28 H 24 H Creatinine Cancelled 0.93 0.72 Glucose Cancelled 95 114 H Calcium Cancelled 8.9 9.5 Cardiac Enzymes 01/20/19 Range/Units 15:25 Troponin I < 0.03 (< 0.04) ng/mL Urine 01/20/19 Range/Units 22:40 Urine Color Yellow (Yellow) Urine Clarity Clear (Clear) Urine pH 6.0 (5.0-8.0) pH Units Ur Specific [place] < 1.005 L (1.010-1.025) Urine Protein Negative (Neg-Trace) mg/dL Urine Glucose (UA) Normal (Normal) mg/dL - ABG Interpretation ABG results: PT/INR, D-dimer 559 ng/mLFEU (0-500) H 01/20/19 15:44 - Impressions Impressions Chest X-Ray 01/20/19 15:23 IMPRESSION: Findings suggest congestive heart failure D/ / Ralph Jacome MD / Ralph Jacome MD Interpreting Provider: Ralph Jacome MD Consult Discharge Plan - Plan Referrals: Jodee Guo, ALEJANDRO [Primary Care Provider] - (2) Hypotension Qualifiers: Qualified Code(s): I95.9 - Hypotension, unspecified (3) CAD (coronary artery disease) Qualifiers: Qualified Code(s): I25.10 - Atherosclerotic heart disease of [place] coronary artery without angina pectoris
--- NOTE | 2019-01-21 08:10 | Cardiology Consult Note ---
<Trina Astudillo N - Last Filed: 01/21/19 09:53> Date of Encounter: 01/21/19 Time of Encounter: 08:05 Assessment and Plan (1) Acute diastolic (congestive) heart failure Current Visit: Yes Status: Acute Unclear if new CHF or medication reaction. Patient was started on brillenta after his LHC, and had no SOB prior to that. Though CXR is consistent with fluid overload, BNP is within normal limits at 29, and patient denies any edema or orthopnea. He does report improvement in symptoms since starting lasix. Review of telemetry shows no arrhythmias or overnigtht events. Echocardiogram on 01/14/2019 demonstrated LVEF 60-65%. Repeat echocardiogram pending. If repeat echocardiogram is normal, recommend stopping brillenta and administer ing plavix 600mg in place of next dose, then continue plavix 75mg daily. (2) CAD (coronary artery disease) Current Visit: Yes Status: Chronic History of CAD s/p LHC and stent to LAD on 01/14/2019. Continue aspirin, statin, and beta aly. Qualifiers: Coronary Disease-Associated Artery/Lesion type: [place] artery [place] vs. transplanted heart: [place] heart Associated angina: angina presence unspecified Qualified Code(s): I25.10 - Atherosclerotic heart disease of [place] coronary artery without angina pectoris (3) Hypotension Current Visit: Yes Status: Acute Patient states that his dose of metoprolol was decreased from 25mg BID to 125mg BID at home; however, he reports that he has been taking 25mg BID since returning home after his heart catheterization. His hypotension did resolve after administration of fluid bolus. Agree with decreasing dose of metoprolol from 25mg BID to 12.5mg BID. Qualifiers: Hypotension type: unspecified hypotension type Qualified Code(s): I95.9 - Hypotension, unspecified Discussion w patient/family: The assessment and plan as outlined above was discussed with the patient and/or family members who expressed understanding and agreement. All questions were answered. Thank you for involving us in the care of your patient. Please call with any questions. History of Present Illness Consult date: 01/20/19 Requesting physician: Taniya Escalante Consult reason: New CHF after AK Chief complaint: Worsening SOB History of present illness: Mr. Sarkar is a 68 year old male with a history of CAD, CVA, HTN, HLD, and recent AK with stent placement on 01/14/2019. He presented to the ED due to worsening shortness of breath. He states that he has felt like he has to work harder to take a deep breath ever since his LHC one week ago, which has gotten progressively worse since then. He denies any chest pain, edema, or orthopnea. CXR obtained in the ED demonstrated findings consistent with CHF, including cardiomegaly, pulmonary vascular congestion, and interstitial edema. Patient was also noted to be hypotensive, with systolic pressure in the 80s, which did improve after administration of a small fluid bolus. Patient was administered to the hospitalist service and administered lasix for diuresis. Cardiology consult placed for recommendations regarding new CHF after recent AK. Previous cardiac testing: * C 01/14/2019: Severe one vessel coronary artery disease. Successful PTCA/PAN placement in mid LAD. * Echocardiogram 01/14/2019: LVEF 60-65%. Mild concentric left ventricular hypertrophy. Moderate left ventricular diastolic dysfunction. Atypical septal motion consistent with paced rhythm. Mild aortic regurgitation. Mild pulmonic regurgitation. * TTE 08/11/2016: EF 60-65%. No significant valvular disease. * 06/2012 [facility]: EF 65%. 40% discrete stenosis pLAD 40% discrete stenosis p 1st DX. 20% discrete stenosis p LCx artery. 20% stenosis mRCA. Past Med Surg Social Fam HX - Past Medical History Medical history: coronary artery disease, CVA, hyperlipidemia, hypertension, myocardial infarction, other Additional medical history: CVA-READING IMPAIRED. 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, lap band, 1 CARDIAC STENT, left knee - Social History Smoking Status: Former smoker Smokeless Tobacco Status: No Alcohol use: occasionally Drug use: none - Family History Mother Living Status: Hx Family Cardiac Disorders: Yes Hx Family Respiratory Disorders: No Hx Family Cancer: No Hx Family GI Disorders: No Hx Family Endocrine Disorder: No Hx Family Neuromuscular Disorders: No Hx Family Neurologic Disorders: No Hx Family HEENT Disorders: No Hx Family Autoimmune Disorders: No Medications and Allergies Metoprolol [Lopressor] 25 mg PO BID 01/13/19 [History] traZODone [TraZODone] 50 mg PO HS 01/13/19 [History] Cholecalciferol (Vitamin D3) [Vitamin D3] 5,000 unit PO QAM 01/14/19 [History] Aspirin Enteric Coated [Aspirin EC] 81 mg PO DAILY #30 tablet. 01/15/19 [Rx] Ticagrelor [Brilinta] 90 mg PO BID #60 tablet 01/15/19 [Rx] Allergy/AdvReac Type Severity Reaction Status Date / Time Penicillins [PCN] Allergy Severe Anaphylaxis Verified 01/14/19 23:05 All Systems Review: The remainder of the systems were reviewed and are negative - Constitutional Constitutional: fatigue - Cardiovascular Cardiovascular: dyspnea at rest, dyspnea on exertion, lightheadedness, no chest pain at rest, no chest pain with exertion, no diaphoresis, no irregular heart rhythm, no radiating jaw, neck or arm pain, no leg edema, no orthopnea, no palpitations, no syncope - Respiratory Respiratory: dyspnea - Gastrointestinal Gastrointestinal: no abdominal pain Physical Examination Vital Signs, Last 4 Hours Temp Pulse Resp BP Pulse Ox 01/21/19 07:46 98.0 F 72 18 123/84 95 01/21/19 05:53 66 102/78 01/21/19 05:37 62 105/60 01/21/19 05:24 61 90/50 01/21/19 04:51 64 104/78 01/21/19 04:23 61 100/50 General: Conversant, No Apparent Distress HEENT: Atraumatic, Normocephaly, Mucus Membranes Moist Cardiac: Reg Rate and Rhythm, Normal S1 and S2, No Murmur Lungs: Normal Breath Sounds, No Wheeze, Rales, Rhonchi Neuro: Alert and responsive, No focal deficits noted Abdomen: Soft, Non-Tender, Other (obese) Skin: No rashes noted on visualized skin Musculoskeletal: No Chest Wall Tenderness Extremities: No Clubbing, No Cyanosis, No Edema, Normal Pulses Results 01/21/19 06:45 01/21/19 06:45 Lab Results 01/20/19 01/20/19 01/20/19 15:25 15:42 15:42 WBC 6.8 Hgb 13.2 Hct 39.1 Plt Count 204 D-Dimer Sodium Cancelled Potassium Cancelled Chloride Cancelled Carbon Dioxide Cancelled BUN Cancelled Creatinine Cancelled Glucose Cancelled Calcium Cancelled Magnesium Troponin I < 0.03 B-Natriuretic Peptide 29 01/20/19 01/20/19 01/21/19 15:44 16:06 06:45 WBC 6.8 Hgb 14.3 Hct 42.1 Plt Count 203 D-Dimer 559 H Sodium 140 Potassium 4.8 Chloride 108 H Carbon Dioxide 28 BUN 28 H Creatinine 0.93 Glucose 95 Calcium 8.9 Magnesium Troponin I B-Natriuretic Peptide 01/21/19 06:45 WBC Hgb Hct Plt Count D-Dimer Sodium 139 Potassium 4.3 Chloride 101 Carbon Dioxide 28 BUN 24 H Creatinine 0.72 Glucose 114 H Calcium 9.5 Magnesium 2.1 Troponin I B-Natriuretic Peptide Consult Discharge Plan - Plan Referrals: Jodee Guo CNP [Primary Care Provider] - <Jessenia Nj - Last Filed: 01/21/19 12:12> Date of Encounter: 01/21/19 - Attending Attestation Patient was seen and evaluated independently by me. Findings, assessment and plan were discussed at length with patient, questions answered. Agree with nurse practitioner's/resident's documentation. Addition as follows, 68yoCM single vessel CAD s/p PAN-mLAD 7 days ago for NSTEMI with preserved LVEF, CVA, HTN, HLD. P/w persistent resting dyspnea after PAN on brilinta. No cough, edema, chest pain, palpitations. Ho occasional dizziness with hypotension 80s/50s on metoprolol 25 bid, able to tolerate 12.5 bid. ECG SR, no ischemic changes. Trop negative, BNP 20s, DD 559, no events on Tele. 20190114 PAN-mLAE. LHC LM/LCx/RCA nl, mLAD 95%. 20190114 TTE EF 60-65%, mild cLVH, mod DD, RV nl, mild AR/RI, no PH. BP ok after down metoprolol to 12.5 bid, RA, CTA B/L, RR, no M/G/R, no LE edema. No anemia or ROBERTO. A: New onset of resting dyspnea 1 wk without clinical evidence of ischemia,CHF or arrhythmia, suspected side effect of brilinta Single vessel CAD s/p PAN-mLAD for NSTEMI 1 wk ago Intolerance of metoprolol >25mg/d P: if normal limited Echo, will switch brilinta to plavix next scheduled dose: plavix 600mg x1, then 75 mg qd from tomorrow. down metoprolol to 12.5mg bid c/w ASA add lipitor 40 Jessenia Nj MD, PhD Assessment and Plan Discussion w patient/family: The assessment and plan as outlined above was discussed with the patient and/or family members who expressed understanding and agreement. All questions were answered. Thank you for involving us in the care of your patient. Please call with any questions. History of Present Illness History of present illness: Mr. Sarkar is a 68 year old male All Systems Review: The remainder of the systems were reviewed and are negative Physical Examination Vital Signs, Last 4 Hours Temp Pulse Resp BP Pulse Ox 01/21/19 11:25 97.6 F 73 16 115/63 96 Results 01/21/19 06:45 01/21/19 06:45 Lab Results 01/20/19 01/20/19 01/20/19 15:25 15:42 15:42 WBC 6.8 Hgb 13.2 Hct 39.1 Plt Count 204 D-Dimer Sodium Cancelled Potassium Cancelled Chloride Cancelled Carbon Dioxide Cancelled BUN Cancelled Creatinine Cancelled Glucose Cancelled Calcium Cancelled Magnesium Troponin I < 0.03 B-Natriuretic Peptide 29 01/20/19 01/20/19 01/21/19 15:44 16:06 06:45 WBC 6.8 Hgb 14.3 Hct 42.1 Plt Count 203 D-Dimer 559 H Sodium 140 Potassium 4.8 Chloride 108 H Carbon Dioxide 28 BUN 28 H Creatinine 0.93 Glucose 95 Calcium 8.9 Magnesium Troponin I B-Natriuretic Peptide 01/21/19 01/21/19 06:45 09:58 WBC Hgb Hct Plt Count D-Dimer Sodium 139 Potassium 4.3 Chloride 101 Carbon Dioxide 28 BUN 24 H Creatinine 0.72 Glucose 114 H Calcium 9.5 Magnesium 2.1 Troponin I < 0.03 B-Natriuretic Peptide
[2019-01-21] MEDS: *HR* Ticagrelor 90 MG TABLET PO SCH (08:28)
[2019-01-21] MEDS: Aspirin Enteric Coated 81 MG Tablet PO SCH (08:28)
[2019-01-21] MEDS: Furosemide 40 MG/4 ML VIAL IVP SCH ×2 (08:29→16:48)
[2019-01-21] MEDS: Cholecalciferol (D-3) 1,000 UNIT TABLET PO SCH (08:29)
--- NOTE | 2019-01-21 12:58 | Electrocardiograph Report ---
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
[2019-01-21] MEDS ORDERED: Perflutren Lipid Microsphere 1.3 ML in 0.9 % Sodium Chloride 8.7 ML IVP ONE (13:12)
[2019-01-21] MEDS: traZODone 50 MG TABLET PO SCH (22:18)
[2019-01-22 02:06] LABS: Hematocrit 43.1 % (37.5-50.1); Hemoglobin 14.8 g/dL (12.9-16.9); Mean Corpuscular HGB Conc 34.3 g/dL (31.6-35.5); Mean Corpuscular Volume 90.4 fL (83.0-100.0); Mean Platelet Volume 10.8 fL (9.4-12.4); Platelet Count 221 K/mcL (140-400); Red Blood Count 4.77 M/mcL (4.19-5.50); Red Cell Distribution Width 11.9 % (11.5-14.5); White Blood Count 6.7 K/mcL (4.3-11.1)
[2019-01-22 02:25] LABS: BUN/Creatinine Ratio 34 (6-26); Blood Urea Nitrogen 30 mg/dL (8-23); Calcium 10.1 mg/dL (8.6-10.3); Carbon Dioxide 28 mEq/L (23-29); Chloride 100 mEq/L (98-107); Chol/HDL Ratio 4.7 (0-4.9); Cholesterol 220 mg/dL (< 200); Glucose 105 mg/dL (70-105); HDL Cholesterol 47 mg/dL (40-59); LDL Cholesterol,Calculated 153 mg/dL (0-99); Osmolality,Calculated 293 (280-300); Potassium 4.1 mEq/L (3.5-5.1); Sodium 138 mEq/L (136-145); Triglycerides 102 mg/dL (< 150); eGFR For African Americans > 60 (> 60); eGFR For Non-African Americans > 60 (> 60)
[2019-01-22 07:29] VITALS: BP 120/71
--- NOTE | 2019-01-22 08:45 | Cardiology Progress Note ---
<Trina Astudillo N - Last Filed: 01/22/19 09:42> Date of Encounter: 01/22/19 Time of Encounter: 08:40 Assessment and Plan (1) Shortness of breath Status: Acute Initial concern for new CHF due to CXR findings of pulmonary edema and vascular congestion; however, high suspicion that patient's symptoms were due to an adverse reaction to Brillinta given onset of symptoms and rapid resolution. Echocardiogram on 01/14/2019 demonstrated LVEF 60-65%. Repeat echocardiogram on 01/21/2019 demonstrated LVEF 65%, mild concentric LVH, and atypical septal motion. Patient was administered loading dose of Plavix 600mg last night, which he appears to have tolerated well; he reports complete resolution of his symptoms this morning and expresses that he is eager to go home. (2) CAD (coronary artery disease) Status: Chronic History of CAD s/p LHC and stent to LAD on 01/14/2019. Patient reports intolerance to statin therapy due to development of severe myalgias. He states that he was started on a different cholesterol medication after a 1-month trial of atorvastatin; however, he suffered a stroke after approximately 3 days of therapy. I discussed with the patient the mortality benefits of statin therapy; however, he states that while he generally follows the advice of his physicians, he is "putting his foot down" with regards to statin therapy. Patient was advised to maintain a healthy diet and lifestyle, and to continue taking all other medications. Patient is agreeable to this. Patient appears to be tolerating plavix well; continue 75mg PO daily. Continue aspirin and beta aly. Qualifiers: Coronary Disease-Associated Artery/Lesion type: [place] artery [place] vs. transplanted heart: [place] heart Associated angina: angina presence unspecified Qualified Code(s): I25.10 - Atherosclerotic heart disease of [place] coronary artery without angina pectoris (3) Hypertension Status: Chronic Continue home medication of metoprolol 12.5mg BID. Qualifiers: Hypertension type: unspecified Qualified Code(s): I10 - Essential (primary) hypertension (4) Hyperlipemia Status: Chronic Qualifiers: Hyperlipidemia type: mixed hyperlipidemia Qualified Code(s): E78.2 - Mixed hyperlipidemia Discussion w patient/family: The assessment and plan as outlined above was discussed with the patient and/or family members who expressed understanding and agreement. All questions were answered. Thank you for involving us in the care of your patient. Please call with any questions. Subjective Principal diagnosis: Shortness of breath, suspect medication reaction Interval history: Mr. Sarkar was seen and evaluated at the bedside. He reports resolution of his shortness of breath, and is no longer requiring supplemental oxygen therapy. He denies any chest pain, shortness of breath, chest pressure, orthopnea, or lower extremity edema. He reports that he tolerated starting plavix last night without complication. He voices that he is eager to return home. Objective Vital Signs, Last 4 Hours Temp Pulse Resp BP Pulse Ox 01/22/19 07:23 97.9 F 73 14 120/71 93 01/22/19 05:23 97.7 F 73 21 106/64 98 General: Conversant, No Apparent Distress HEENT: Atraumatic, Normocephaly, Mucus Membranes Moist Neck: No JVD, Normal carotid pulses Cardiac: Reg Rate and Rhythm, Normal S1 and S2, No Murmur Lungs: Normal Breath Sounds, No Wheeze, Rales, Rhonchi Neuro: Alert and responsive, No focal deficits noted Abdomen: Soft, Non-Tender Skin: No rashes noted on visualized skin Musculoskeletal: No Chest Wall Tenderness Extremities: No Clubbing, No Cyanosis, No Edema, Normal Pulses Results 01/22/19 01:09 01/22/19 01:09 Lab Results 01/21/19 01/22/19 01/22/19 09:58 01:09 01:09 WBC 6.7 Hgb 14.8 Hct 43.1 Plt Count 221 Sodium 138 Potassium 4.1 Chloride 100 Carbon Dioxide 28 BUN 30 H Creatinine 0.87 Glucose 105 Calcium 10.1 Troponin I < 0.03 Consult Discharge Plan - Plan Instructions: Metoprolol (By mouth), Furosemide (By mouth), Clopidogrel (By mouth), Myocardial Infarction (DC), Heart Failure (DC), Heart Failure (GEN), Low Fat Diet (DC), Heart Healthy Diet (DC), Cholesterol and Your Health (GEN), Heart Healthy Diet, Air Launch Weapons Technician (GEN) Referrals: Jodee Guo CNP [Primary Care Provider] - 02/04/19 9:00 am (Patient will be seeing Dr. Cortes on this day. ) Prescriptions: Furosemide [Lasix] 40 mg PO DAILY #30 tab Metoprolol [Lopressor] 12.5 mg PO BID 30 Days #60 tablet Clopidogrel [Plavix] 75 mg PO DAILY #90 tablet <Jessenia Nj - Last Filed: 01/22/19 14:02> Date of Encounter: 01/22/19 Assessment and Plan Discussion w patient/family: The assessment and plan as outlined above was discussed with the patient and/or family members who expressed understanding and agreement. All questions were answered. Thank you for involving us in the care of your patient. Please call with any questions. Results 01/22/19 01:09 01/22/19 01:09 Lab Results 01/22/19 01/22/19 01:09 01:09 WBC 6.7 Hgb 14.8 Hct 43.1 Plt Count 221 Sodium 138 Potassium 4.1 Chloride 100 Carbon Dioxide 28 BUN 30 H Creatinine 0.87 Glucose 105 Calcium 10.1 - Attending Attestation Patient was discharged before I was able to see him in person. Findings, assessment and plan were discussed at length with patient, questions answered. Agree with nurse practitioner's/resident's documentation. Addition as follows, Interim No more dyspnea. Brilinta was stopped, plavix 600 given last night and 75 qd from today. Pt declining trial of other statins due to ho severe muscle pain. Repeated TTE EF 65%. VSS. -----initial 68yoCM single vessel CAD s/p PAN-mLAD 7 days ago for NSTEMI with preserved LVEF, CVA, HTN, HLD. P/w persistent resting dyspnea after PAN on brilinta. No cough, edema, chest pain, palpitations. Ho occasional dizziness with hypotension 80s/50s on metoprolol 25 bid, able to tolerate 12.5 bid. ECG SR, no ischemic changes. Trop negative, BNP 20s, DD 559, no events on Tele. 20190114 PAN-mLAE. LHC LM/LCx/RCA nl, mLAD 95%. 20190114 TTE EF 60-65%, mild cLVH, mod DD, RV nl, mild AR/[place], no PH. BP ok after down metoprolol to 12.5 bid, RA, CTA B/L, RR, no M/G/R, no LE edema. No anemia or ROBERTO. A: New onset of resting dyspnea 1 wk without clinical evidence of ischemia,CHF or arrhythmia, suspected side effect of brilinta, now switched to plavix Single vessel CAD s/p PAN-mLAD for NSTEMI 1 wk ago Intolerance of metoprolol >25mg/d P: c/w ASA and plavix. c/w metoprolol to 12.5mg bid will need address statin trial in cardiology clinic Jessenia Nj MD, PhD
[2019-01-22] MEDS: Furosemide 40 MG/4 ML VIAL IVP SCH (08:46)
[2019-01-22] MEDS: Cholecalciferol (D-3) 1,000 UNIT TABLET PO SCH (08:47)
[2019-01-22] MEDS: Aspirin Enteric Coated 81 MG Tablet PO SCH (08:47)
--- NOTE | 2019-01-22 10:08 | Discharge Summary ---
Date of Encounter: 01/22/19 Time of Encounter: 10:00 - Discharge Diagnosis (1) Acute diastolic (congestive) heart failure Priority: Primary Status: Ruled-out Assessment and Plan: 68 year old male with pmh of recent [place] s/p stent, s/p pacemaker placement for sick sinus syndrome recently discharged this monday s/p drug eluting stent placement in LAD presenting with complaints of shortness of breath of 3 days duration with an acute worsening in the last 24 hrs. Patient says since he left the hospital he has been feeling more sleepy and has had decreased exercise tolerance. In the last 24 hrs, he has been more severely short of breath and has been unable to complete any meaningful activity without becoming extrremely winded. He denies any other acute symptoms such as chest pain or fevers or chills or lower extremity swelling.In the ER, a chest xray showed pulmonary vascular congestion. He was assessed with shortness of breath and pulmonary vascular congestion post NJ Concerning for acute diastolic CHF versus post NJ pathology such as acute MR and ventricular wall complications versus shortness from brillinta. He also had pulmonary vascular congestion. He improved on lasix. Limited echo showed no valvular or acute ventricular abnormalities. His shortness of breath was likely a combination of acute diastolic CHF and brillinta side effect. He was switched to plavix on discharge and lasix po daily. He declined statin therapy due to myopathy. 35 minutes was spent discharging this patient (2) Hypotension Priority: Primary Status: Acute Qualifiers: Hypotension type: unspecified hypotension type Qualified Code(s): I95.9 - Hypotension, unspecified (3) CAD (coronary artery disease) Priority: Primary Status: Chronic Qualifiers: Coronary Disease-Associated Artery/Lesion type: [place] artery [place] vs. transplanted heart: [place] heart Associated angina: angina presence unspecified Qualified Code(s): I25.10 - Atherosclerotic heart disease of [place] coronary artery without angina pectoris (4) DVT prophylaxis Priority: Primary Status: Acute Hospital course: Mr. Sarkar is a 68 year old male - Time Spent with Patient Total time spent providing and/or coordinating discharge services: - Discharge Medications Prescriptions: New Metoprolol [Lopressor] 12.5 mg PO BID 30 Days #60 tablet Clopidogrel [Plavix] 75 mg PO DAILY #90 tablet Furosemide [Lasix] 40 mg PO DAILY #30 tab Continued traZODone [TraZODone] 50 mg PO HS Cholecalciferol (Vitamin D3) [Vitamin D3] 5,000 unit PO QAM Aspirin Enteric Coated [Aspirin EC] 81 mg PO DAILY #30 tablet. Discontinued Metoprolol [Lopressor] 25 mg PO BID Ticagrelor [Brilinta] 90 mg PO BID #60 tablet Home Medications: traZODone [TraZODone] 50 mg PO HS 01/13/19 [History] Cholecalciferol (Vitamin D3) [Vitamin D3] 5,000 unit PO QAM 01/14/19 [History] Aspirin Enteric Coated [Aspirin EC] 81 mg PO DAILY #30 tablet. 01/15/19 [Rx] Clopidogrel [Plavix] 75 mg PO DAILY #90 tablet 01/22/19 [Rx] Furosemide [Lasix] 40 mg PO DAILY #30 tab 01/22/19 [Rx] Metoprolol [Lopressor] 12.5 mg PO BID 30 Days #60 tablet 01/22/19 [Rx] Allergies/Adverse Reactions: Allergy/AdvReac Type Severity Reaction Status Date / Time Penicillins [PCN] Allergy Severe Anaphylaxis Verified 01/14/19 23:05 atorvastatin Allergy Muscle Pain Verified 01/22/19 07:19 Date of admission: 01/20/19 17:39 Primary care physician: Jodee Guo Consults: 01/20/19 17:50 Consult to Cardiology [CONS] Routine Comment: Consulting Provider: Cardiology Steph Reason for Consult: CHF post [place] Call Completed: Yes - Constitutional Vitals: Temp Pulse Resp BP Pulse Ox 97.9 F 73 14 120/71 93 01/22/19 07:23 01/22/19 07:23 01/22/19 07:23 01/22/19 07:23 01/22/19 08:51 Exam: General appearance: Present: A&O X 3, no acute distress Head exam: Present: normocephalic Respiratory exam: Present: CTAB. Absent: accessory muscle use, rales, rhonchi, wheezes Cardiovascular exam: Present: RRR, +S1, +S2. Absent: diastolic murmur, gallop, rubs, systolic murmur GI/Abdominal exam: Soft, NT, ND, +BS Extremities exam: Absent: pedal edema Neurological exam: Present: alert, oriented X3, no focal deficits. Absent: altered - Patient Status Disposition: Home, Self-Care Condition: Fair - Discharge Instructions Instructions: Metoprolol (By mouth), Furosemide (By mouth), Clopidogrel (By mouth), Myocardial Infarction (DC), Heart Failure (DC), Heart Failure (GEN), Low Fat Diet (DC), Heart Healthy Diet (DC), Cholesterol and Your Health (GEN), Heart Healthy Diet, Seconds Grader (GEN) Follow Up With: Jodee Guo CNP [Primary Care Provider] - 02/04/19 9:00 am (Patient will be seeing Dr. Cortes on this day. )
== END 2019-01-22 11:13 | disposition home or self-care (01) | DRG 282 ==
LOC: 2NENU 15:09 → EMEROOARM 15:09 → OBSVTOIN 17:39 → 2NENU 18:30
PROVIDERS: ADMIT Internal Medicine Nephrology; ATTEND Internal Medicine Nephrology

== ENCOUNTER 2019-03-29 02:04 | Observation (INO) ==
[2019-03-29] MEDS ORDERED: Nitroglycerin 0.4 MG TAB.SUBL SL PRN (06:53)
[2019-03-29] MEDS ORDERED: *HR* Heparin 5,000 UNIT/ML VIAL IVP ONE (06:55)
[2019-03-29] MEDS ORDERED: *HR* Heparin 5,000 UNIT/ML VIAL IVP PRN ×2 (06:55)
[2019-03-29] MEDS ORDERED: Heparin 25,000 UNIT/250 ML D5W 25,000 UNIT/250 ML IV.SOLN IVC SCH (07:00)
--- NOTE | 2019-03-29 07:19 | Event Note ---
Date of Encounter: 03/29/19 Time of Encounter: 06:30 Alerted that this patient was a transfer from [place] and had been taken to [facility]. Room was not clean so patient was taken to the ED Room 20. Went to do a [id number] with this pt. who was reporting 9/10 CP. Patient stated he had an OH in December 2018 w/LHC and stent placement x1. 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 Patient states this pain is the same as then. Central to left breast pressure w/radiation to back between shoulder blades and throat. Intermittent sharp/stabbing. Patient states nitro not effective but morphine was. Skeletal orders placed until a.m. team can admit the patient: Limited Echo, trending trops, stat CBC and CMP, low-dose heparin gtt, Cardiology consult. A.M. team alerted to see this patient immediately.
[2019-03-29] MEDS ORDERED: Ondansetron 4 MG/2 ML VIAL IVP PRN (07:39)
[2019-03-29] MEDS ORDERED: Naloxone 0.4 MG/ML INJ IVP PRN (07:39)
[2019-03-29] MEDS ORDERED: Acetaminophen 325 MG TABLET PO PRN (07:39)
--- NOTE | 2019-03-29 07:49 | Internal Med History&Physical ---
Date of Encounter: 03/29/19 Time of Encounter: 07:41 Internal Medicine - H&P: HPI Chief complaint: Chest pain Admitted From: Emergency Dept History of present illness: Jeremiah Sarkar is a 68 M w hx CAD s/p PCI x1 to LAD 12/2018, SSS s/p PPM, HFpEF, HTN, HLD, CVA, who p/w chest pain. Pain began late last night while patient at rest, is continuous intense pressure in mid chest radiating to left chest, arm, back, and jaw. Initially diaphoretic. No N/V, no SOB although does say that deep inspiration seems to make pain worsen slightly. No numbness or tingling in hands or feet, no abd pain, diarrhea, leg pain, or fevers. Pt states this discomfort is similar to that when he had NSTEMI in December. In the ED, pt vitals: T 98, HR 65, RR 18, BP 146/96, satting well RA. CXR unremarkable. ECG unchanged from baseline. Initial trop undetectable. Started on nitro gtt without much relief of pain but did have hypotension and severe headache, thus morphine given and only had partial relief. Started on hep gtt and transferred to [facility] for cardiology. Past medical, surgical, social, and family histories reviewed and updated as below. Past Med Surg Social Fam HX - Past Medical History Medical history: arthritis, CHF, coronary artery disease, CVA, hyperlipidemia, migraine, myocardial infarction Additional medical history: CVA-READING IMPAIRED. 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, lap band, 1 CARDIAC STENT (December 2018), left knee, pacemaker - Social History Smoking Status: Former smoker Smokeless Tobacco Status: No Alcohol use: none Drug use: none - Family History Mother Living Status: Hx Family Cardiac Disorders: Yes Hx Family Respiratory Disorders: No Hx Family Cancer: No Hx Family GI Disorders: No Hx Family Endocrine Disorder: No Hx Family Neuromuscular Disorders: No Hx Family Neurologic Disorders: No Hx Family HEENT Disorders: No Hx Family Autoimmune Disorders: No Internal Medicine - H&P: Meds traZODone [TraZODone] 100 mg PO HS 01/13/19 [History] Cholecalciferol (Vitamin D3) [Vitamin D3] 5,000 unit PO QAM 01/14/19 [History] Aspirin Enteric Coated [Aspirin EC] 81 mg PO DAILY #30 tablet. 01/15/19 [Rx] Clopidogrel [Plavix] 75 mg PO DAILY #90 tablet 01/22/19 [Rx] Metoprolol [Lopressor] 12.5 mg PO BID 03/28/19 [History] Allergy/AdvReac Type Severity Reaction Status Date / Time Penicillins [PCN] Allergy Severe Anaphylaxis Verified 03/28/19 23:57 atorvastatin Allergy Muscle Pain Verified 03/28/19 23:57 ticagrelor [From Brilinta] Allergy Chest Pain Verified 03/28/19 23:57 All Systems PM: A 10-system review of systems was performed and is negative for pertinent findings except as documented above in the HPI. - Constitutional Vitals: Temp Pulse Resp BP Pulse Ox 97.9 F 63 16 124/78 99 03/29/19 07:19 03/29/19 07:19 03/29/19 07:19 03/29/19 07:19 03/29/19 07:19 Exam: General: good eye contact, uncomfortable appearing Head: Atraumatic, normocephalic. Face symmetric Eyes: EOMI, sclerae anicteric ENT: Mucous membranes moist. Normal oral mucosa and moderate dentition. Trachea midline. Thoracic: No visible chest wall deformities. Normal breath sounds b/l, no wheezing or crackles Cardio: Normal S1 and S2, regular rate and rhythm Abdomen: Soft, nontender, nondistended, obese Extremities: Warm, well perfused. DP pulses 2+ b/l. No clubbing, cyanosis. No edema Skin: Intact. No rashes, bruises, or ulcers Neuro: Awake, fully oriented. Decent memory, concentration, attention. Speech fluent. CN II-XII grossly intact. Strength 5/5 in b/l UE and LE Internal Med - H&P Results - Labs CBC & Chem 7: 03/29/19 07:47 - Summary of Assessment and Plan Summary of Assessment and Plan: Jeremiah Sarkar is a 68 M w hx CAD s/p PCI x1 to LAD 12/2018, SSS s/p PPM, HFpEF, HTN, HLD, CVA, who p/w unstable angina. Unstable angina: ECG unremarkable, trop x1 negative. Pain is atypical but is high risk due to cardiac hx. Rec'd ASA in EMS. - trend trops - d-dimer - CTA to r/o dissection - tele - limited TTE - nitro SL and morphine prn pain - home ASA, plavix, BB - Cardio consult CAD, CVA, HLD: home ASA 81, plavix 75, metoprolol 12.5 bid, has listed allergy to statin SSS s/p PPM: noted, no redness/irritation at pacer site HTN: controlled, metoprolol as above HFpEF: not volume overloaded Obesity: PPx: hep gtt Tele: yes Activity: up ad janette FEN: regular, no MIVF Lines: PIV Consults: Code: Full Dispo: obs for unstable angina, anticipate 1-2 days, will be homegoing
[2019-03-29 08:08] LABS: Heparin anti-factor XA UFH 0.04 IU/mL (0.30-0.70)
[2019-03-29 08:09] LABS: Prothrombin Time 10.8 Seconds (9.4-12.1)
[2019-03-29 08:23] LABS: Alanine Aminotransferase 14 Units/L (7-52); Albumin 3.9 g/dL (3.5-5.7); Albumin/Globulin Ratio 1.6 (1.1-2.2); Alkaline Phosphatase 65 Units/L (34-104); Aspartate Amino Transferase 18 Units/L (13-39); BUN/Creatinine Ratio 31 (6-26); Bilirubin,Total 0.5 mg/dL (0.3-1.0); Blood Urea Nitrogen 20 mg/dL (8-23); Calcium 9.2 mg/dL (8.6-10.3); Carbon Dioxide 25 mEq/L (23-29); Chloride 104 mEq/L (98-107); Globulin 2.4 g/dL (2.4-3.5); Glucose 106 mg/dL (70-105); Osmolality,Calculated 287 (280-300); Potassium 4.2 mEq/L (3.5-5.1); Sodium 137 mEq/L (136-145); Total Protein 6.3 g/dL (6.4-8.9); Troponin I < 0.03 ng/mL (< 0.04); eGFR For African Americans > 60 (> 60); eGFR For Non-African Americans > 60 (> 60)
--- NOTE | 2019-03-29 08:29 | Cardiology Consult Note ---
Date of Encounter: 03/29/19 Time of Encounter: 08:25 Assessment and Plan (1) Chest pain Current Visit: No Status: Acute Per Cardiology: Troponins negative 3. Similar experience with past CT, however also reproducible on exam today. Limited echo pending per primary service. At lengthy discussion with patient and and he preferred to proceed with further evaluation. We will proceed with low-level nonexercise nuclear stress test. Further recommendations pain echo stress test results. Qualifiers: Chest pain type: unspecified Qualified Code(s): R07.9 - Chest pain, unspecified (2) CAD (coronary artery disease) Current Visit: No Status: Chronic Per Cardiology: ECHO 01/2019: Impressions: LVEF 60%. Normal LV chamber size and function. Mild concentric left ventricular hypertrophy. Mild left ventricular diastolic dysfunction. Atypical septal motion consistent with paced rhythm. Normal right ventricular structure and function. No evidence of pulmonary hypertension. Mild-moderate pulmonic regurgitation. A device lead was visualized in the right atrium and right ventricle. Left Ventricular Wall Motion: Rest Echo Findings All wall segments showed normal motion. [facility] 12/2018: Lesion Findings/Interventions * Left Main Coronary Artery The LMCA is angiographically free of disease. * Left Anterior Descending There is a 25% stenosis in the Proximal LAD. There is a 20 mm long, 95% stenosis in the Mid LAD. The lesion has a YUNI flow of 3. An intervention was performed on the Mid LAD with a final stenosis of 0%. There were no lesion complications. The final YUNI flow was 3. * Circumflex The Circumflex is angiographically free of disease. The 1st Marginal is angiographically free of disease. * Right Coronary Artery The RCA is angiographically free of disease. The Right PDA is angiographically free of disease. On aspirin, Plavix, beta aly. Has past intolerance to statins. Qualifiers: Coronary Disease-Associated Artery/Lesion type: [place] artery [place] vs. transplanted heart: [place] heart Associated angina: angina presence unspecified Qualified Code(s): I25.10 - Atherosclerotic heart disease of [place] coronary artery without angina pectoris (3) Elevated d-dimer Current Visit: Yes Status: Acute Per Cardiology: D-Dimer 604. CT pending. On IV heparin drip. Discussion w patient/family: The assessment and plan as outlined above was discussed with the patient and/or family members who expressed understanding and agreement. All questions were answered. Thank you for involving us in the care of your patient. Please call with any questions. History of Present Illness Consult date: 03/29/19 Consult reason: CP Chief complaint: CP History of present illness: Mr. Sarkar is a 68 year old male with a relevant past medical history of CAD, past history of nicotine abuse, HLD, HTN, CVA, obesity, history of tachybra dycardia syndrome with pacemaker-- dual-chamber [employer]. Cardiology consult for chest pain. Seen today with at bedside. Reports normal state of health until yesterday evening. Actively participating in cardiac rehabilitation 3 days per week with no symptoms. He indicates at rest developed midsternal "hurting" sensation as a midsternal pressure throughout his back and also left arm and to his jaw. He reports symptoms similar to that experienced with his CT back in December 2018. He reports symptoms are still ongoing about 1 out of 10. He reports nitroglycerin with no relief in the ER. He denies any recent infectious process. Denies any recent trauma or falls. Reports medication compliance. Remains smoke-free for the past 28 years. Past Med Surg Social Fam HX - Past Medical History Attestation: Yes The following information was validated with the patient. Source: patient, old records reviewed, obtained from family Medical history: arthritis, CHF, coronary artery disease, CVA, hyperlipidemia, migraine, myocardial infarction Additional medical history: CVA-READING IMPAIRED. 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, lap band, 1 CARDIAC STENT (December 2018), left knee, pacemaker - Social History Smoking Status: Former smoker Smokeless Tobacco Status: No Alcohol use: none Drug use: none - Family History Mother Living Status: Hx Family Cardiac Disorders: Yes Hx Family Respiratory Disorders: No Hx Family Cancer: No Hx Family GI Disorders: No Hx Family Endocrine Disorder: No Hx Family Neuromuscular Disorders: No Hx Family Neurologic Disorders: No Hx Family HEENT Disorders: No Hx Family Autoimmune Disorders: No Medications and Allergies traZODone [TraZODone] 100 mg PO HS 01/13/19 [History] Cholecalciferol (Vitamin D3) [Vitamin D3] 5,000 unit PO QAM 01/14/19 [History] Aspirin Enteric Coated [Aspirin EC] 81 mg PO DAILY #30 tablet. 01/15/19 [Rx] Clopidogrel [Plavix] 75 mg PO DAILY #90 tablet 01/22/19 [Rx] Metoprolol [Lopressor] 12.5 mg PO BID 03/28/19 [History] Allergy/AdvReac Type Severity Reaction Status Date / Time Penicillins [PCN] Allergy Severe Anaphylaxis Verified 03/28/19 23:57 atorvastatin Allergy Muscle Pain Verified 03/28/19 23:57 ticagrelor [From Brilinta] Allergy Chest Pain Verified 03/28/19 23:57 All Systems Review: The remainder of the systems were reviewed and are negative - Cardiovascular Cardiovascular: as per HPI, chest pain at rest, radiating jaw, neck or arm pain Physical Examination Vital Signs, Last 4 Hours Temp Pulse Resp BP Pulse Ox 03/29/19 07:19 97.9 F 63 16 124/78 99 General: Conversant, No Apparent Distress HEENT: Atraumatic, Normocephaly, Mucus Membranes Moist Neck: No JVD, Normal carotid pulses Cardiac: Reg Rate and Rhythm, Normal S1 and S2, No Murmur Lungs: Normal Breath Sounds, No Wheeze, Rales, Rhonchi Neuro: Alert and responsive, No focal deficits noted Abdomen: Soft, Non-Tender Skin: No rashes noted on visualized skin Musculoskeletal: No Chest Wall Tenderness, Other (Midsternal chest discomfort actually worsened with palpation today) Extremities: No Clubbing, No Cyanosis, No Edema, Normal Pulses Results 03/29/19 07:47 Lab Results Laboratory Tests 01/15/19 03/29/19 03/29/19 05:32 00:04 00:04 Hgb 14.5 Hct 42.7 INR D-Dimer Creatinine Est GFR (Non-Af Amer) Hemoglobin A1c 5.8 H Magnesium AST ALT Troponin I < 0.03 03/29/19 03/29/19 03/29/19 04:03 07:47 07:47 Hgb Hct INR 1.0 D-Dimer 604 H Creatinine 0.64 L Est GFR (Non-Af Amer) > 60 Hemoglobin A1c Magnesium 2.0 AST 18 ALT 14 Troponin I < 0.03 < 0.03 - Imaging and Cardiology Chest Xray: report reviewed (IMPRESSION: No acute abnormality detected.) Echo: report reviewed - EKG Interpretation EKG results cardiology: personally reviewed, normal ECG, sinus rhythm, other (Atrial pacing)
[2019-03-29] MEDS ORDERED: Isovue-370 500 ML BOTTLE IVP ONE (08:42)
[2019-03-29] MEDS ORDERED: Regadenoson 0.4 MG/5 ML SYRINGE IVP ONE ×2 (10:30→10:37)
--- NOTE | 2019-03-29 11:07 | Event Note ---
Date of Encounter: 03/29/19 Time of Encounter: 11:00 - Cardiology Event Note Impressions Echocardiogram Limited Views 03/29/19 06:50 Impressions: LVEF 60-65%. Moderately dilated right ventricle with mild right ventricular hypokinesis. Left Ventricular Wall Motion: Rest Echo Findings All wall segments showed normal motion. Findings: Study Quality * Technically sub-optimal due to poor echocardiographic windows. ECG Findings * Normal sinus rhythm. Left Ventricle * LVEF 60-65%. * Normal LV chamber size, wall thickness and systolic function. Right Ventricle * Moderately dilated right ventricle. * Mild right ventricular hypokinesis. Left Atrium * Normal left atrial size. Right Atrium * Normal right atrial size. Device lead * A device lead was visualized in the right atrium and right ventricle. CT Dissection 03/29/19 08:42 IMPRESSION: 1. No evidence for thoracic or abdominal aorta aneurysm or dissection. 2. Bilateral pulmonary artery enlargement which can be seen in pulmonary hypertension is stable. 3. Mild atherosclerotic disease. 4. Borderline cardiomegaly. 5. Interval development of area of scarring along the major fissure in the apicoposterior left upper lobe as well as some smaller scattered bibasilar thin bandlike scar densities representing scarring. 6. No acute infective or inflammatory process. 7. Lap band noted. D/ / Skip Grier MD / Skip Grier MD Interpreting Provider: Skip Grier MD results discussed with Dr. Blanco-- negative for PE. Will DC IV Hep. gtt. Echo EF preserved. 2 Day stress test pending.
[2019-03-29] MEDS: *HR* Heparin 5,000 UNIT/ML VIAL SQ SCH (17:44)
[2019-03-29 20:23] LABS: Hematocrit 40.9 % (37.5-50.1); Hemoglobin 13.6 g/dL (12.9-16.9); Mean Corpuscular HGB Conc 33.3 g/dL (31.6-35.5); Mean Corpuscular Volume 93.2 fL (83.0-100.0); Mean Platelet Volume 10.6 fL (9.4-12.4); Platelet Count 181 K/mcL (140-400); Red Blood Count 4.39 M/mcL (4.19-5.50); Red Cell Distribution Width 12.1 % (11.5-14.5); White Blood Count 4.9 K/mcL (4.3-11.1)
[2019-03-29] MEDS ORDERED: traZODone 50 MG TABLET PO SCH (21:00)
[2019-03-30] MEDS: *HR* Heparin 5,000 UNIT/ML VIAL SQ SCH (05:03)
[2019-03-30 05:04] LABS: Hematocrit 43.7 % (37.5-50.1); Hemoglobin 14.6 g/dL (12.9-16.9); Mean Corpuscular HGB Conc 33.4 g/dL (31.6-35.5); Mean Corpuscular Hemoglobin 31.2 pg (28.0-33.3); Mean Corpuscular Volume 93.4 fL (83.0-100.0); Mean Platelet Volume 10.4 fL (9.4-12.4); Platelet Count 182 K/mcL (140-400); Red Blood Count 4.68 M/mcL (4.19-5.50); White Blood Count 4.9 K/mcL (4.3-11.1)
[2019-03-30 05:23] LABS: BUN/Creatinine Ratio 23 (6-26); Blood Urea Nitrogen 17 mg/dL (8-23); Calcium 9.7 mg/dL (8.6-10.3); Carbon Dioxide 30 mEq/L (23-29); Chloride 103 mEq/L (98-107); Glucose 120 mg/dL (70-105); Osmolality,Calculated 291 (280-300); Potassium 4.5 mEq/L (3.5-5.1); Sodium 139 mEq/L (136-145); eGFR For African Americans > 60 (> 60); eGFR For Non-African Americans > 60 (> 60)
[2019-03-30 06:41] VITALS: BP 123/89
[2019-03-30] MEDS ORDERED: Aspirin Enteric Coated 81 MG Tablet PO SCH (09:00)
--- NOTE | 2019-03-30 10:56 | Discharge Summary ---
Date of Encounter: 03/30/19 Time of Encounter: 10:00 - Discharge Diagnosis (1) Chest pain Priority: Primary Status: Acute Assessment and Plan: 68 M w hx CAD s/p PCI x1 to LAD 12/2018, SSS s/p PPM, HFpEF, HTN, HLD, CVA, who p/w chest pain. Pain began late last night while patient at rest, is continuous intense pressure in mid chest radiating to left chest, arm, back, and jaw. Initially diaphoretic. No N/V, no SOB although does say that deep inspiration seems to make pain worsen slightly. No numbness or tingling in hands or feet, no abd pain, diarrhea, leg pain, or fevers. Pt states this discomfort is similar to that when he had NSTEMI in December. In the ED, pt vitals: T 98, HR 65, RR 18, BP 146/96, satting well RA. CXR unremarkable. ECG unchanged from baseline. Initial trop undetectable. Started on nitro gtt without much relief of pain but did have hypotension and severe headache, thus morphine given and only had partial relief. Started on hep gtt and transferred to [facility] for cardiology. He was seen by cardiology for chest pain r/o ACS. He had a 2 day stress test which came back negative for any ischemia. Heparin drip was discontinued. He was discharged on prn nitroglycerin Qualifiers: Chest pain type: unspecified Qualified Code(s): R07.9 - Chest pain, unspecified Hospital course: Mr. Sarkar is a 68 year old male - Time Spent with Patient Total time spent providing and/or coordinating discharge services: - Discharge Medications Prescriptions: New Nitroglycerin 0.4 mg SL Q5MIN #60 tab.subl Continued traZODone [TraZODone] 100 mg PO HS Cholecalciferol (Vitamin D3) [Vitamin D3] 5,000 unit PO QAM Aspirin Enteric Coated [Aspirin EC] 81 mg PO DAILY #30 tablet. Clopidogrel [Plavix] 75 mg PO DAILY #90 tablet Metoprolol [Lopressor] 12.5 mg PO BID Home Medications: traZODone [TraZODone] 100 mg PO HS 01/13/19 [History] Cholecalciferol (Vitamin D3) [Vitamin D3] 5,000 unit PO QAM 01/14/19 [History] Aspirin Enteric Coated [Aspirin EC] 81 mg PO DAILY #30 tablet. 01/15/19 [Rx] Clopidogrel [Plavix] 75 mg PO DAILY #90 tablet 01/22/19 [Rx] Metoprolol [Lopressor] 12.5 mg PO BID 03/28/19 [History] Nitroglycerin 0.4 mg SL Q5MIN #60 tab.subl 03/30/19 [Rx] Allergies/Adverse Reactions: Allergy/AdvReac Type Severity Reaction Status Date / Time Penicillins [PCN] Allergy Severe Anaphylaxis Verified 03/28/19 23:57 atorvastatin Allergy Muscle Pain Verified 03/28/19 23:57 ticagrelor [From Brilinta] Allergy Chest Pain Verified 03/28/19 23:57 Date of admission: 03/29/19 06:18 Consults: 03/29/19 06:58 Consult to Cardiology [CONS] Routine Comment: Consulting Provider: Cardiology Steph Reason for Consult: Patient having active CP 04/09. Pt. had [facility] in December 2018 requiring LHC and [address] Sebastian for Cardiology Call Completed: No - Constitutional Vitals: Temp Pulse Resp BP Pulse Ox 97.5 F L 68 12 123/89 98 03/30/19 06:33 03/30/19 06:33 03/30/19 06:33 03/30/19 06:33 03/30/19 06:33 Exam: General: NAD Head: Atraumatic, normocephalic. Face symmetric Eyes: EOMI, sclerae anicteric ENT: Mucous membranes moist. Normal oral mucosa and moderate dentition. Trachea midline. Thoracic: No visible chest wall deformities. Normal breath sounds b/l, no wheezing or crackles Cardio: Normal S1 and S2, regular rate and rhythm Abdomen: Soft, nontender, nondistended, obese Extremities: Warm, well perfused. DP pulses 2+ b/l. No clubbing, cyanosis. No edema Skin: Intact. No rashes, bruises, or ulcers Neuro: Awake, fully oriented. Decent memory, concentration, attention. Speech fluent. CN II-XII grossly intact. Strength 5/5 in b/l UE and LE - Patient Status Disposition: Home, Self-Care Condition: Good - Discharge Instructions Instructions: Nitroglycerin (By mouth), Angina (DC)
--- NOTE | 2019-03-30 11:57 | Cardiology Progress Note ---
Date of Encounter: 03/30/19 Time of Encounter: 10:45 Assessment and Plan (1) Chest pain Current Visit: No Status: Acute Per Cardiology: -Troponins negative 3. -Similar experience with past [place], however also reproducible on exam. -Limited echo with LVEF preserved, no wall motion abnormalities noted. -Currenlty chest pain free. -No acute ischemic ECG changes noted. -Stress test negative for ischemia. -Cardiology will sign off. Will arrange outpatient follow up. -Recommend discharge with SL nitro. Patient educated on how to use. Qualifiers: Chest pain type: unspecified Qualified Code(s): R07.9 - Chest pain, unspecified (2) CAD (coronary artery disease) Current Visit: No Status: Chronic Per Cardiology: -Known CAD s/p [facility] 12/2018 with PCI to LAD with PAN, has remaining mild CAD. -On asa, plavix, BB. Intolerant to statins. -Continue current medical therapy. Qualifiers: Coronary Disease-Associated Artery/Lesion type: [place] artery [place] vs. transplanted heart: [place] heart Associated angina: angina presence unspecified Qualified Code(s): I25.10 - Atherosclerotic heart disease of [place] coronary artery without angina pectoris Discussion w patient/family: The assessment and plan as outlined above was discussed with the patient and/or family members who expressed understanding and agreement. All questions were answered. Thank you for involving us in the care of your patient. Please call with any questions. Discussed and reviewed with . Subjective Principal diagnosis: Chest pain Interval history: Pateint denies current chest pain. States he feels well. Objective Vital Signs Temperature 97.9 F 03/29/19 07:19 Pulse Rate 63 03/29/19 07:19 Respiratory Rate 16 03/29/19 07:19 Blood Pressure 124/78 03/29/19 07:19 O2 Sat by Pulse Oximetry 99 03/29/19 07:19 Temperature 97.5 F L 03/30/19 06:33 Pulse Rate 68 03/30/19 06:33 Respiratory Rate 12 03/30/19 06:33 Blood Pressure 123/89 03/30/19 06:33 O2 Sat by Pulse Oximetry 98 03/30/19 06:33 General: Conversant, No Apparent Distress HEENT: Atraumatic, Normocephaly, Mucus Membranes Moist Neck: No JVD, Normal carotid pulses Cardiac: Reg Rate and Rhythm, Normal S1 and S2, No Murmur Lungs: Normal Breath Sounds, No Wheeze, Rales, Rhonchi Neuro: Alert and responsive, No focal deficits noted Abdomen: Soft, Non-Tender Skin: No rashes noted on visualized skin Musculoskeletal: No Chest Wall Tenderness Extremities: No Clubbing, No Cyanosis, No Edema, Normal Pulses Results 03/30/19 04:41 03/30/19 04:41 Lab Results Active Medications Acetaminophen (Tylenol) 650 mg PO Q6HR PRN PRN Reason: Mild Pain/Fever Stop: 09/28/19 07:40 Last Admin: 03/29/19 14:45 Dose: 650 mg Documented by: Aspirin (Aspirin Ec) 81 mg PO DAILY [facility] Stop: 09/29/19 09:01 Last Admin: 03/30/19 08:54 Dose: 81 mg Documented by: Clopidogrel Bisulfate (Plavix) 75 mg PO DAILY [facility] Stop: 09/28/19 09:01 Last Admin: 03/30/19 08:54 Dose: 75 mg Documented by: Heparin Sodium (Porcine) (Heparin) 5,000 unit SQ Q12HCO [facility]; Protocol Stop: 09/28/19 18:01 Last Admin: 03/30/19 05:03 Dose: 5,000 unit Documented by: Metoprolol Tartrate (Lopressor) 12.5 mg PO BID [facility] Stop: 09/28/19 09:01 Last Admin: 03/30/19 08:54 Dose: 12.5 mg Documented by: Naloxone HCl (Narcan) 0.4 mg IVP Q2MPRN PRN PRN Reason: SEE COMMENTS Stop: 09/28/19 07:40 Nitroglycerin (Nitroglycerin) 0.4 mg SL Q5MPRN PRN PRN Reason: Chest Pain Stop: 09/28/19 06:54 Ondansetron HCl (Zofran) 4 mg IVP Q8HR PRN PRN Reason: Nausea And Vomiting Stop: 09/28/19 07:40 Trazodone HCl (Trazodone) 100 mg PO HS [facility] Stop: 09/28/19 21:01 Last Admin: 03/29/19 19:52 Dose: 100 mg Documented by: - Imaging and Cardiology Chest Xray: report reviewed Stress Test: report reviewed Echo: report reviewed - EKG Interpretation EKG results cardiology: other (Telemetry reviewed with average HR previous 12 h ours noted to be 64, SR. PVCs, PACs noted.) Consult Discharge Plan - Plan Instructions: Nitroglycerin (By mouth), Angina (DC) Prescriptions: Nitroglycerin 0.4 mg SL Q5MIN #60 tab.subl
== END 2019-03-30 12:28 | disposition home or self-care (01) ==
LOC: 2NENU
PROVIDERS: ADMIT Internal Medicine; ATTEND Internal Medicine

== ENCOUNTER 2020-09-27 16:08 | Observation (INO) ==
[2020-09-27] MEDS ORDERED: Naloxone 0.4 MG/ML INJ IVP PRN (19:40)
[2020-09-27] MEDS ORDERED: Ondansetron 4 MG/2 ML VIAL IVP PRN (19:40)
[2020-09-27] MEDS ORDERED: Melatonin 3 MG TABLET PO PRN (19:40)
[2020-09-27] MEDS ORDERED: Nitroglycerin 0.4 MG TAB.SUBL SL PRN (19:41)
[2020-09-27] MEDS ORDERED: Nitroglycerin 0.4 MG TAB.SUBL SL SCH (19:45)
[2020-09-27] MEDS ORDERED: Isovue-370 500 ML BOTTLE IVP ONE ×2 (20:03→21:38)
[2020-09-27] MEDS ORDERED: *HR* OxyCODONE/APAP 5/325 TABLET PO ONE (20:10)
[2020-09-27 21:03] LABS: Basophils % 0.5 %; Eosinophils # 0.2 K/mcL (0.0-0.6); Eosinophils % 2.6 %; Hematocrit 38.7 % (37.5-50.1); Hemoglobin 13.2 g/dL (12.9-16.9); Immature Granulocytes % 0.3 % (0-4); Lymphocytes # 2.2 K/mcL (0.6-4.6); Lymphocytes % 38.5 %; Mean Corpuscular HGB Conc 34.1 g/dL (31.6-35.5); Mean Corpuscular Hemoglobin 30.6 pg (28.0-33.3); Mean Corpuscular Volume 89.6 fL (83.0-100.0); Mean Platelet Volume 10.4 fL (9.4-12.4); Monocytes # 0.5 K/mcL (0.0-1.3); Monocytes % 9.3 %; Neutrophils # 2.8 K/mcL (1.6-8.9); Platelet Count 190 K/mcL (140-400); Red Blood Count 4.32 M/mcL (4.19-5.50); Red Cell Distribution Width 12.1 % (11.5-14.5); Segmented Neutrophils % 48.8 %; White Blood Count 5.7 K/mcL (4.3-11.1)
[2020-09-27 21:27] LABS: BUN/Creatinine Ratio 20 (6-26); Blood Urea Nitrogen 16 mg/dL (8-23); Calcium 9.1 mg/dL (8.6-10.3); Carbon Dioxide 30 mEq/L (23-29); Chloride 107 mEq/L (98-107); Glucose 105 mg/dL (70-105); Osmolality,Calculated 294 (280-300); Sodium 141 mEq/L (136-145); Troponin I < 0.03 ng/mL (< 0.04); eGFR For African Americans > 60 (> 60); eGFR For Non-African Americans > 60 (> 60)
[2020-09-27] MEDS ORDERED: *HR* Heparin 5,000 UNIT/ML VIAL IVP ONE (22:09)
[2020-09-27] MEDS ORDERED: *HR* Heparin 5,000 UNIT/ML VIAL IVP PRN ×2 (22:09)
[2020-09-27] MEDS ORDERED: Heparin 25,000UNIT/250ML 1/2NS 25,000 UNIT/250 ML IV.SOLN IVC SCH (22:15)
[2020-09-27 23:14] LABS: Adenovirus Not Detected (Not Detect); Coronavirus 229E Not Detected (Not Detect); Coronavirus HKU1 Not Detected (Not Detect); Coronavirus NL63 Not Detected (Not Detect)
[2020-09-27 23:15] LABS: Bordetella Pertussis Not Detected (Not Detect); Chlamydophila pneumoniae Not Detected (Not Detect); Coronavirus OC43 Not Detected (Not Detect); Human Metapneumovirus Not Detected (Not Detect); Human Rhinovirus/Enterovirus Not Detected (Not Detect); Influenza A Subtype 2009 H1 Not Detected (Not Detect); Influenza B Not Detected (Not Detect); Mycoplasma pneumoniae Not Detected (Not Detect); Parainfluenza Virus 1 Not Detected (Not Detect); Parainfluenza Virus 2 Not Detected (Not Detect); Parainfluenza Virus 3 Not Detected (Not Detect); Parainfluenza Virus 4 Not Detected (Not Detect); Respiratory Syncytial Virus Not Detected (Not Detect); SARS-CoV-2 Not Detected (Not Detect)
[2020-09-28 04:51] LABS: Basophils % 0.6 %; Eosinophils # 0.2 K/mcL (0.0-0.6); Eosinophils % 3.2 %; Hematocrit 37.4 % (37.5-50.1); Hemoglobin 13.1 g/dL (12.9-16.9); Immature Granulocytes % 0.2 % (0-4); Lymphocytes # 1.7 K/mcL (0.6-4.6); Lymphocytes % 34.1 %; Mean Corpuscular Hemoglobin 31.2 pg (28.0-33.3); Mean Platelet Volume 10.4 fL (9.4-12.4); Monocytes # 0.6 K/mcL (0.0-1.3); Monocytes % 11.2 %; Neutrophils # 2.5 K/mcL (1.6-8.9); Platelet Count 166 K/mcL (140-400); Red Cell Distribution Width 12.3 % (11.5-14.5); Segmented Neutrophils % 50.7 %
[2020-09-28 05:02] LABS: Prothrombin Time 11.7 Seconds (9.4-12.1)
[2020-09-28 05:11] LABS: BUN/Creatinine Ratio 20 (6-26); Blood Urea Nitrogen 16 mg/dL (8-23); Carbon Dioxide 30 mEq/L (23-29); Chloride 106 mEq/L (98-107); Glucose 94 mg/dL (70-105); Osmolality,Calculated 297 (280-300); Potassium 4.2 mEq/L (3.5-5.1); Sodium 143 mEq/L (136-145); eGFR For African Americans > 60 (> 60); eGFR For Non-African Americans > 60 (> 60)
[2020-09-28 05:13] LABS: Troponin I < 0.03 ng/mL (< 0.04)
[2020-09-28] MEDS ORDERED: *HR* Heparin 5,000 UNIT/ML VIAL SQ SCH (06:00)
[2020-09-28] MEDS ORDERED: Regadenoson 0.4 MG/5 ML SYRINGE IVP ONE (06:16)
[2020-09-28 10:28] LABS: Chol/HDL Ratio 4.9 (0-4.9); Cholesterol 191 mg/dL (< 200); HDL Cholesterol 39 mg/dL (40-59); LDL Cholesterol,Calculated 140 mg/dL (< 100); Triglycerides 59 mg/dL (< 150)
[2020-09-28 10:49] LABS: Estimated Average Glucose 120 mg/dl; Hemoglobin A1C 5.8 %
[2020-09-28 12:08] VITALS: BP 144/89
[2020-09-28] MEDS ORDERED: Warfarin perPT PO PRN (18:00)
== END 2020-09-28 14:05 | disposition home or self-care (01) ==
LOC: 3BNU → SUATTDRO 19:10
PROVIDERS: ADMIT Internal Medicine; ATTEND Internal Medicine

== ENCOUNTER 2021-06-08 12:32 | Observation (INO) ==
[2021-06-08] MEDS ORDERED: Ondansetron 4 MG/2 ML VIAL IVP PRN (14:38)
[2021-06-08] MEDS ORDERED: Naloxone 0.4 MG/ML INJ IVP PRN (14:38)
[2021-06-08] MEDS ORDERED: Acetaminophen 325 MG TABLET PO PRN (16:01)
[2021-06-08] MEDS: Morphine Sulfate 2 MG/ML SYRINGE IVP PRN ×2 (16:32→22:32)
[2021-06-08] MEDS: traZODone 50 MG TABLET PO SCH (20:13)
[2021-06-08] MEDS: *HR* Heparin 5,000 UNIT/ML VIAL SQ SCH (20:17)
[2021-06-09 01:50] LABS: Basophils % 0.5 %; Eosinophils # 0.1 K/mcL (0.0-0.6); Eosinophils % 0.9 %; Hematocrit 37.3 % (37.5-50.1); Hemoglobin 12.5 g/dL (12.9-16.9); Immature Granulocytes % 0.2 % (0-4); Lymphocytes # 1.3 K/mcL (0.6-4.6); Lymphocytes % 20.3 %; Mean Corpuscular HGB Conc 33.5 g/dL (31.6-35.5); Mean Corpuscular Hemoglobin 30.7 pg (28.0-33.3); Mean Corpuscular Volume 91.6 fL (83.0-100.0); Mean Platelet Volume 10.4 fL (9.4-12.4); Monocytes # 0.7 K/mcL (0.0-1.3); Monocytes % 11.1 %; Neutrophils # 4.4 K/mcL (1.6-8.9); Platelet Count 174 K/mcL (140-400); Red Blood Count 4.07 M/mcL (4.19-5.50); White Blood Count 6.6 K/mcL (4.3-11.1)
[2021-06-09 01:55] LABS: BUN/Creatinine Ratio 17 (6-26); Blood Urea Nitrogen 15 mg/dL (8-23); Calcium 8.6 mg/dL (8.6-10.3); Carbon Dioxide 28 mEq/L (23-29); Chloride 99 mEq/L (98-107); Chol/HDL Ratio 4.7 (0-4.9); Cholesterol 194 mg/dL (< 200); Glucose 124 mg/dL (70-105); HDL Cholesterol 41 mg/dL (40-59); LDL Cholesterol,Calculated 138 mg/dL (< 100); Magnesium 1.8 mg/dL (1.6-2.6); Osmolality,Calculated 278 (280-300); Potassium 3.7 mEq/L (3.5-5.1); Sodium 133 mEq/L (136-145); Triglycerides 76 mg/dL (< 150); eGFR For African Americans > 60 (> 60); eGFR For Non-African Americans > 60 (> 60)
[2021-06-09] MEDS: Morphine Sulfate 2 MG/ML SYRINGE IVP PRN (04:41)
[2021-06-09] MEDS: *HR* Heparin 5,000 UNIT/ML VIAL SQ SCH ×3 (04:42→21:34)
[2021-06-09] MEDS ORDERED: Regadenoson 0.4 MG/5 ML SYRINGE IVP ONE (06:18)
[2021-06-09] MEDS: Aspirin 81 MG TAB.CHEW PO SCH (08:41)
[2021-06-09] MEDS ORDERED: 0.9 % Sodium Chloride 2,000 ML ONE ×2 (12:51→14:26)
[2021-06-09] MEDS ORDERED: *HR* Midazolam HCl 2 MG/2 ML VIAL ONE ×2 (12:51→14:44)
[2021-06-09] MEDS ORDERED: *HR* FentaNYL (PF) 100 MCG/2 ML VIAL ONE ×2 (12:51→14:44)
[2021-06-09] MEDS ORDERED: Heparin 1,000 UNITS/500 mL 500 ML ONE ×2 (12:52→14:26)
[2021-06-09] MEDS ORDERED: ISOVUE-370 200 ML INFUS..BTL ONE ×2 (12:52→14:26)
[2021-06-09] MEDS ORDERED: Nitroglycerin 1,000 MCG/5 ML VIAL IV ONE ×2 (12:52→14:26)
[2021-06-09] MEDS ORDERED: *HR* Heparin 10,000 UNIT/10 ML VIAL ONE ×2 (12:52→14:26)
[2021-06-09] MEDS: Metoprolol XL (24 HR) Succ 25 MG TAB.ER.24H PO SCH (21:33)
[2021-06-09] MEDS: traZODone 50 MG TABLET PO SCH (21:34)
[2021-06-10 02:55] VITALS: TEMP 98.3
[2021-06-10 07:21] VITALS: BP 142/88; PULSE 65; O2SAT 94
[2021-06-10] MEDS: *HR* Heparin 5,000 UNIT/ML VIAL SQ SCH (07:21)
[2021-06-10] MEDS: Metoprolol XL (24 HR) Succ 25 MG TAB.ER.24H PO SCH (08:29)
[2021-06-10] MEDS: Aspirin 81 MG TAB.CHEW PO SCH (08:29)
== END 2021-06-10 10:03 | disposition home or self-care (01) ==
LOC: 3BNU → SUATTDRO 14:21
PROVIDERS: ADMIT Internal Medicine; ATTEND Hospitalist